=== PATIENT | female | born 1950 | race Hispanic/Latino ===

== ENCOUNTER → 2017-10-17 | Outpatient (CLI) | payer BC, OTHER ==
[~2017-10-17] MED LIST: APRISO0.375 GM PO; CANAGLIFLOZIN PO; CLARITIN10 M2 PO; ECOTRIN325 MG PO; FERROUS SULFAT325 M1 PO; FLUTICASONE PRO16 GM NS; FUROSEMIDE20 MG PO; GLYBURIDE5 MG PO; IOPAMIDOL 370 MG/ML 200 ML INFUS..BTL INJ ONE; JANUMET 50-1,01 EACH PO; K DUR10 MEQ PO; LANTUS 3ML100 UNITS/ SC; LEVOCETIRIZINE D5 MG PO; LEVOTHYROXINE25 MCG PO; LIALDA1.2 GM PO; LIPITOR10 MG PO; LOSARTAN POTASS25 MG PO; METHSCOPOLAMIN2.5 MG PO; METOPROLOL SUC100 MG PO; PANTOPRAZOLE SO40 MG PO; PATANOL5 ML OP; PLAVIX75 MG PO; PROAIR HFA INH8.5 GM INH; RANITIDINE HCL150 MG PO; SODIUM CHLORIDE 0.9% 50ML 50 ML ONE; VITAMIN D31000 UNI1 PO
[2017-10-17 09:23] LABS: BLOOD UREA NITROGEN 19 mg/dL (7-26); BUN/CREATININE RATIO 23 (6-25); CREATININE, SERUM 0.83 mg/dL (0.57-1.11); EST GLOMERULAR FILTRATION RATE > 60 ML/MIN (60-)
--- NOTE | 2017-10-17 14:54 | Diagnostic Imaging Report ---
CT, CTA lower extremity, with contrast. History: Peripheral vascular disease; bilateral intermittent claudication Comparison: None available. Technique: Multidetector [address] scanning with 4 mm cuts of the pelvis and bilateral lower extremities was performed from the level of the iliac crests to the feet after intravenous administration of iodinated contrast material. Scanning during arterial phase was performed. Coronal and sagittal multiplanar, MIP and 3-D volume-rendering reformations were obtained. IV CONTRAST:100mL of Isovue-370 ORAL CONTRAST: None RADIATION DOSE: Total DLP: 653.76 mGy*cm Estimated Effective Dose: DLP x 0.015 mSv COMPLICATIONS: None Discussion: Pelvis vessels: Bilateral common, external and internal iliac arteries are patent. Minimal atherosclerotic calcification is present. Right lower extremity: Right common femoral, profundus femoral, superficial femoral and popliteal arteries are patent. There is diffuse calcification within the SFA. There is a patent trifurcation. Occlusion of the right proximal anterior tibial artery is noted. The peroneal artery is continuous supply to the foot but small. Occlusion of the right posterior tibial artery in its midportion is noted. Left lower extremity: Left common femoral, profundus femoral and superficial femoral are patent. Diffuse calcification within the SFA also noted. Mid left SFA shows a 50% stenosis. The popliteal artery is occluded above the knee joint and reconstituted just at the popliteal bifurcation. Anterior tibial artery is occluded. Proximal and distal portion of the posterior tibial artery is occluded. Small peroneal artery continues to the foot. Other: There are clips present in the left thigh from saphenous vein harvest. IMPRESSION: 1. Diffuse atherosclerotic calcification in the lower extremity vessels. 2. 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 3. Left popliteal artery occlusion with reconstitution of a peroneal artery below the knee extending to the left foot. Signed by: Dr. Federico Butler DO on 10/17/2017 2:50 PM
== END ==
LOC: CT 08:24
DX: I70.213 Atherosclerosis of native arteries of extremities with intermittent claudication, bilateral legs (principal)
CPT/HCPCS: 36415; 73706; 82565; 84520; Q9967

== ENCOUNTER → 2017-12-19 | Outpatient (CLI) | payer BC, OTHER ==
[~2017-12-19] MED LIST changes: -IOPAMIDOL 370 MG/ML 200 ML INFUS..BTL INJ ONE; -SODIUM CHLORIDE 0.9% 50ML 50 ML ONE
--- NOTE | 2017-12-19 12:38 | Diagnostic Imaging Report ---
PROCEDURE: SMALL BOWEL SERIES FLUOROSCOPY TIME: 0.2 MINUTES Air Kerma: 16.8 mGy Comparison: None. Indications: anemia Technique: Small bowel follow through exam was performed using oral barium. Preliminary image was obtained before administration of contrast and serial overhead images were obtained after administration of oral barium. Fluoroscopy was performed and spot images were obtained. 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 No mass effect organomegaly. Degenerative disc changes of the lumbar spine and degenerative joint disease of the hips. SMALL BOWEL FOLLOW THROUGH: Small bowel loops are normal in caliber and distribution. Spot compression views of the terminal ileum are normal. The transit time was normal. IMPRESSION: Unremarkable fluoroscopic small bowel series. Dictated by: Shailesh Shelton M.D. on 12/19/2017 at 12:40 Electronically approved by: Shailesh Shelton M.D. on 12/19/2017 at 12:40
== END ==
LOC: DX 07:14
PROVIDERS: ATTEND Internal Medicine Gastroenterology
DX: D50.9 Iron deficiency anemia, unspecified (principal)
CPT/HCPCS: 74250

== ENCOUNTER → 2018-06-21 | Day surgery (SDC) | payer BC, OTHER ==
[2018-06-20 11:07] LABS: BASOPHILS # (AUTO) 0.1 (0.0-0.1); BASOPHILS % 0.6 % (0.0-1.0); EOSINOPHILS # (AUTO) 0.4 (0.0-0.4); EOSINOPHILS % 3.9 % (0.0-6.0); HEMATOCRIT 33.8 % (34.2-44.1); HEMOGLOBIN 10.9 g/dL (12.0-16.0); LYMPHOCYTES # (AUTO) 2.1 (1.0-3.2); LYMPHOCYTES % 21.6 % (18.0-39.1); MEAN CORPUSCULAR HEMOGLOBIN 29.2 pg (28-32); MEAN CORPUSCULAR HGB CONC 32.2 g/dL (31-35); MEAN CORPUSCULAR VOLUME 90.6 fL (81-99); MONOCYTES # (AUTO) 0.7 (0.2-0.8); MONOCYTES % 7.1 % (4.4-11.3); NEUTROPHILS # (AUTO) 6.3 (2.1-6.9); NEUTROPHILS % 66.3 % (38.7-80.0); PLATELET COUNT 209 x10e3/uL (140-360); RED BLOOD COUNT 3.73 x10e6/uL (3.6-5.1); RED CELL DISTRIBUTION WIDTH 13.8 % (11.7-14.4)
[2018-06-20 11:18] LABS: INR 0.85; PROTHROMBIN TIME 12.4 seconds (11.9-14.5)
[2018-06-20 11:19] LABS: PARTIAL THROMBOPLASTIN TIME 26.9 seconds (23.8-35.5)
[2018-06-20 11:28] LABS: ALBUMIN 3.6 g/dL (3.5-5.0); ALBUMIN/GLOBULIN RATIO 1.1 (0.8-2.0); ANION GAP 17.1 mmol/L (8-16); CALCIUM 9.8 mg/dL (8.4-10.2); CREATININE, SERUM 0.98 mg/dL (0.57-1.11); POTASSIUM 5.1 mmol/L (3.5-5.1)
--- NOTE | 2018-06-20 12:12 | Diagnostic Imaging Report ---
EXAMINATION: CHEST 2 VIEWS INDICATION: Chest pain. Preop for cardiac catheter COMPARISON: None FINDINGS: TUBES and LINES: Right anterior chest port catheter with distal tip at the right atrial/superior vena cava junction. Sternal wires. One of the mid sternal wires is disrupted. LUNGS: Lungs are well inflated. Lungs are clear. There is no evidence of pneumonia or pulmonary edema. PLEURA: No pleural effusion or pneumothorax. HEART AND MEDIASTINUM: The cardiomediastinal silhouette is unremarkable. BONES AND SOFT TISSUES: No acute osseous lesion. Soft tissues are unremarkable. UPPER ABDOMEN: No free air under the diaphragm. IMPRESSION: No acute thoracic abnormality. Signed by: Dr. Cesar Daly M.D. on 06/20/2018 12:08 PM
[2018-06-21] VITALS (20 sets, daily range): BP systolic 121–158; BP diastolic 54–99
[~2018-06-21] VITALS: Ht 160 cm; Wt 80.7 kg
[~2018-06-21] MED LIST changes: +BASAGLAR SC; +CALCET TABLET1 EACH PO; +FENTANYL CITRATE/PF 100MCG/2 ML INJ ONE; +HEPARIN SOD/SOD CHLORIDE 2,000 ML ONE; +IOPAMIDOL 370 MG/ML 200 ML INFUS..BTL INJ ONE; +LIDOCAINE HCL 1% LOCAL INJ 20 ML VIAL ONE; +MIDAZOLAM HCL 2 MG/2 ML VIAL ONE; +PROBIOTIC & AC1 EACH PO; +SODIUM CHLORIDE 0.9% 1000ML 1,000 ML ONE
--- OUTSIDE RECORDS SUMMARY | 2018-06-21 07:31 | XMS REPORT | Continuity of Care Document ---
Author Author [facility] Interface Address Unknown Phone Unavailable Problems Problem Status Onset Date Classification Date Reported Comments Source HTN Active Problem 08/13/2014 [facility] Hyperlipidemia Active Problem 08/13/2014 [facility] carotid artery disease Active Problem 08/13/2014 [facility] Asthma Active Problem 08/13/2014 [facility] Hypothyroidism Active Problem 08/13/2014 [facility] Vitamin d deficiency Active Problem 08/13/2014 [facility] Sinusitis Active Problem 08/13/2014 [facility] CAD Active Problem 08/13/2014 [facility] Diabetes mellitus Active Diagnosis 08/13/2014 [facility] 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 08/13/2014 [facility] Cardiac arrhythmia Active Problem 08/13/2014 [facility] Bronchitis Active Diagnosis 11/15/2013 [facility] Costochondritis Active Diagnosis 11/15/2013 [facility] GERD Active Diagnosis 12/21/2013 [facility] Post-menopausal Active Diagnosis 12/21/2013 [facility] Routine general medical examination at a health care facility Active Diagnosis 04/23/2014 [facility] CAD Active Problem 05/29/2014 [facility] Joint pain Active Diagnosis 04/23/2014 [facility] Medications Medication Details Route Status Patient Instructions Ordering Provider Order Date Source Klor-Con M10 1 tablet Orally Active 10 MEQ Orally daily [facility] 04/07/2015 [facility] Invokana 1 tablet Orally Active 300 MG Orally Once a day [facility] 07/29/2014 [facility] Klor-Con M10 1 tablet Orally Active 10 MEQ Orally daily [facility] 06/20/2014 [facility] Klor-Con M10 1 tablet Orally Active 10 MEQ Orally Twice a day [facility] 06/10/2014 [facility] GlyBURIDE 1 tablet Orally Active 5 MG Orally Once a day [facility] 01/25/2014 [facility] Synthroid 1 tablet on an empty stomach in the morning Orally Active 25 MCG Orally Once a day [facility] 01/11/2014 [facility] Omeprazole 1 capsule Orally Active 40 mg Orally Once a day [facility] 12/07/2013 [facility] Omeprazole 1 capsule Orally Active 40 mg Orally Once a day [facility] 12/07/2013 [facility] Zithromax Z-Sukhdev 2 tablets on the first day, then 1 tablet daily for 4 days Orally Active 250 MG Orally Once a day [facility] 11/08/2013 [facility] GlyBURIDE 2 tablets Orally No Longer Active 5 MG Orally Once a day [facility] 10/06/2013 [facility] Levaquin 1 tablet Orally Active 500 mg Orally Once a day [facility] 09/06/2013 [facility] Medrol (Sukhdev) as directed Orally Active 4 mg Orally as directed [facility] 09/06/2013 [facility] Janumet 1 tablet with meals Orally Active 50-1000 MG Orally Twice a day [facility] 08/13/2013 [facility] Nebulizer as directed inhalation therapy Active Nebulizer inhalation therapy q 4-6 hours prn [facility] 08/10/2013 [facility] Nebulizer as directed inhalation therapy Active Nebulizer inhalation therapy q 4-6 hours prn [facility] 08/10/2013 [facility] Plavix 1 tablet Orally Active 75 MG Orally Once a day [facility] 07/27/2013 [facility] Insulin Syringe as directed SQ Active 31G X 5/16" 0.5 ML SQ once every night DX: 250.00 [facility] 05/28/2013 [facility] Losartan Potassium 1 tablet Orally Active 25 MG Orally Once a day [facility] 04/04/2013 [facility] Patanol 1 drop into affected eye Ophthalmic Active 0.1 % Ophthalmic Twice a day [facility] 04/04/2013 [facility] Proventil HFA 2 puffs as needed Inhalation Active 108 (90 Base) MCG/ACT Inhalation every 4-6 hrs [facility] 03/12/2013 [facility] Nexium 1 capsule Orally Active 40 mg Orally Once a day [facility] 02/12/2013 [facility] Lantus 16 units Subcutaneous Active 100 UNIT/ML Subcutaneous qhs [facility] 12/22/2012 [facility] Ipratropium Durbin as needed via nebulizer Inhalation Active 0.02 % Inhalation [facility] Clopidogrel Bisulfate 1 tablet Orally Active 75 mg Orally Once a day [facility] Furosemide 1 tablet Orally Active 20 mg Orally Once a day [facility] Albuterol Sulfate 3 ml via nebulizer Inhalation Active (2.5 MG/3ML) 0.083% Inhalation prn [facility] Janumet 1 tablet with meals Orally Active 50-1000 MG Orally Twice a day [facility] Ecotrin 1 tablet Orally Active 325 MG Orally Once a day [facility] Vytorin 1 tablet Orally Active 10-20 MG Orally Once a day [facility] Loratadine 1 tablet Orally Active 10 mg Orally Once a day [facility] Klor-Con M10 1 tablet Orally Active 10 MEQ Orally Twice a day [facility] Metoprolol Succinate ER 1 tablet Orally Active 100 mg Orally Once a day [facility] Nexium TAKE 1 CAPSULE DAILY NA No Longer Active 40MG [facility] Metoprolol Succinate ER 1 tablet Orally Active 100MG Orally Once a day [facility] Vytorin 1 tablet Orally Active 10-20 MG Orally Once a day [facility] GlyBURIDE 1 tablet Orally No Longer Active 5 MG Orally Once a day [facility] Allergies, Adverse Reactions, Alerts Substance Category Reaction Severity Reaction type Status Date Reported Comments Source Codeine Phosphate Adverse Reaction itchy Adverse Reaction Active 07/29/2014 [facility] Immunizations Immunization Date Given Site Status Last Updated Comments Source Results Order Name Results Value Reference Range Date Interpretation Comments Source Vital Signs Vital Sign Value Date Comments Source Weight 193 07/29/2014 [facility] Height 63 07/29/2014 [facility] Heart Rate 86 07/29/2014 [facility] Diastolic (mm Hg) 82 07/29/2014 [facility] Systolic (mm Hg) 140 07/29/2014 [facility] Weight 194 07/12/2014 [facility] Height 63 07/12/2014 [facility] Heart Rate 78 07/12/2014 [facility] Diastolic (mm Hg) 78 07/12/2014 [facility] Systolic (mm Hg) 122 07/12/2014 [facility] Weight 192 04/12/2014 [facility] Height 63 04/12/2014 [facility] Temperature Oral (F) 98.0 F 04/12/2014 [facility] Heart Rate 82 04/12/2014 [facility] Diastolic (mm Hg) 74 04/12/2014 [facility] Systolic (mm Hg) 122 04/12/2014 [facility] Weight 192 01/25/2014 [facility] Height 63 01/25/2014 [facility] Heart Rate 68 01/25/2014 [facility] Diastolic (mm Hg) 78 01/25/2014 [facility] Systolic (mm Hg) 118 01/25/2014 [facility] Weight 192 12/07/2013 [facility] Height 63 12/07/2013 [facility] Temperature Oral (F) 97.4 F 12/07/2013 [facility] Heart Rate 68 12/07/2013 [facility] Diastolic (mm Hg) 80 12/07/2013 [facility] Systolic (mm Hg) 130 12/07/2013 [facility] Weight 192 10/12/2013 [facility] Height 63 10/12/2013 [facility] Heart Rate 89 10/12/2013 [facility] Diastolic (mm Hg) 80 10/12/2013 [facility] Systolic (mm Hg) 130 10/12/2013 [facility] Weight 190 08/10/2013 [facility] Height 63 08/10/2013 [facility] Temperature Oral (F) 97.9 F 08/10/2013 [facility] Heart Rate 76 08/10/2013 [facility] Diastolic (mm Hg) 80 08/10/2013 [facility] Systolic (mm Hg) 140 08/10/2013 [facility] Weight 189 07/06/2013 [facility] Height 63 07/06/2013 [facility] Heart Rate 68 07/06/2013 [facility] Diastolic (mm Hg) 70 07/06/2013 [facility] Systolic (mm Hg) 110 07/06/2013 [facility] Encounters Location Location Details Encounter Type Encounter Number Reason For Visit Attending Provider ADM Date DC Date Status Source [facility] rx refill [id number] 07/27/2013 07/27/2013 [facility] rx refill [id number] 07/27/2013 07/27/2013 [facility] rx refill [id number] 07/27/2013 07/27/2013 [facility] rx refill [id number] 07/27/2013 07/27/2013 [facility] rx refill [id number] 07/27/2013 07/27/2013 [facility] rx refill [id number] 07/27/2013 07/27/2013 [facility] rx refill [id number] 07/27/2013 07/27/2013 [facility] rx refill [id number] 07/27/2013 07/27/2013 [facility] rx refill [id number] 07/27/2013 07/27/2013 [facility] rx refill [id number] 07/27/2013 07/27/2013 [facility] rx refill [id number] 07/27/2013 07/27/2013 [facility] rx refill [id number] 07/27/2013 07/27/2013 [facility] rx refill [id number] 07/27/2013 07/27/2013 [facility] rx refill [id number] 07/27/2013 07/27/2013 [facility] rx refill [id number] 07/27/2013 07/27/2013 [facility] rx refill [id number] 07/27/2013 07/27/2013 [facility] rx refill [id number] 07/27/2013 07/27/2013 [facility] rx refill [id number] 07/27/2013 07/27/2013 [facility] rx refill [id number] 07/27/2013 07/27/2013 [facility] [id number] 08/10/2013 08/10/2013 [facility] [id number] 08/10/2013 08/10/2013 [facility] [id number] 08/10/2013 08/10/2013 [facility] [id number] 08/10/2013 08/10/2013 [facility] [id number] 08/10/2013 08/10/2013 [facility] [id number] 08/10/2013 08/10/2013 [facility] [id number] 08/10/2013 08/10/2013 [facility] [id number] 08/10/2013 08/10/2013 [facility] [id number] 08/10/2013 08/10/2013 [facility] [id number] 08/10/2013 08/10/2013 [facility] [id number] 08/10/2013 08/10/2013 [facility] [id number] 08/10/2013 08/10/2013 [facility] [id number] 08/10/2013 08/10/2013 [facility] [id number] 08/10/2013 08/10/2013 [facility] [id number] 08/10/2013 08/10/2013 [facility] [id number] 08/10/2013 08/10/2013 [facility] [id number] 09/06/2013 09/06/2013 [facility] [id number] 09/06/2013 09/06/2013 [facility] [id number] 09/06/2013 09/06/2013 [facility] [id number] 09/06/2013 09/06/2013 [facility] [id number] 09/06/2013 09/06/2013 [facility] [id number] 09/06/2013 09/06/2013 [facility] [id number] 09/06/2013 09/06/2013 [facility] [id number] 09/06/2013 09/06/2013 [facility] [id number] 09/06/2013 09/06/2013 [facility] [id number] 09/06/2013 09/06/2013 [facility] [id number] 09/06/2013 09/06/2013 [facility] [id number] 09/06/2013 09/06/2013 [facility] [id number] 09/06/2013 09/06/2013 [facility] [id number] 09/06/2013 09/06/2013 [facility] sick [id number] 09/06/2013 09/06/2013 [facility] sick [id number] 09/06/2013 09/06/2013 [facility] sick [id number] 09/06/2013 09/06/2013 [facility] [id number] 09/06/2013 09/06/2013 [facility] 3 month f/u [id number] 10/12/2013 10/12/2013 [facility] 3 month f/u [id number] 10/12/2013 10/12/2013 [facility] 3 month f/u [id number] 10/12/2013 10/12/2013 [facility] 3 month f/u [id number] 10/12/2013 10/12/2013 [facility] 3 month f/u [id number] 10/12/2013 10/12/2013 [facility] 3 month f/u [id number] 10/12/2013 10/12/2013 [facility] 3 month f/u [id number] 10/12/2013 10/12/2013 [facility] 3 month f/u [id number] 10/12/2013 10/12/2013 [facility] 3 month f/u [id number] 10/12/2013 10/12/2013 [facility] 3 month f/u [id number] 10/12/2013 10/12/2013 [facility] 3 month f/u [id number] 10/12/2013 10/12/2013 [facility] 3 month f/u [id number] 10/12/2013 10/12/2013 [facility] 3 month f/u [id number] 10/12/2013 10/12/2013 [facility] 3 month f/u [id number] 10/12/2013 10/12/2013 [facility] 3 month f/u [id number] 10/12/2013 10/12/2013 [facility] 3 month f/u [id number] 10/12/2013 10/12/2013 [facility] Sick [id number] 11/08/2013 11/08/2013 [facility] [id number] 11/08/2013 11/08/2013 [facility] [id number] 11/08/2013 11/08/2013 [facility] Sick [id number] 11/08/2013 11/08/2013 [facility] S[facility] [id number] 11/08/2013 11/08/2013 [facility] [id number] 11/08/2013 11/08/2013 [facility] [id number] 11/08/2013 11/08/2013 [facility] [id number] 11/08/2013 11/08/2013 [facility] [facility] [id number] 11/08/2013 11/08/2013 [facility] [id number] 11/08/2013 11/08/2013 [facility] Sick [id number] 11/08/2013 11/08/2013 [facility] Sick [id number] 11/08/2013 11/08/2013 [facility] Sick [id number] 11/08/2013 11/08/2013 [facility] Sick [id number] 11/08/2013 11/08/2013 [facility] Sick [id number] 11/08/2013 11/08/2013 [facility] Sick [id number] 11/08/2013 11/08/2013 [facility] Sick [id number] 11/08/2013 11/08/2013 [facility] PHYSICAL [id number] 12/07/2013 12/07/2013 [facility] PHYSICAL [id number] 12/07/2013 12/07/2013 [facility] PHYSICAL [id number] 12/07/2013 12/07/2013 [facility] PHYSICAL [id number] 12/07/2013 12/07/2013 [facility] PHYSICAL [id number] 12/07/2013 12/07/2013 [facility] PHYSICAL [id number] 12/07/2013 12/07/2013 [facility] PHYSICAL [id number] 12/07/2013 12/07/2013 [facility] PHYSICAL [id number] 12/07/2013 12/07/2013 [facility] PHYSICAL [id number] 12/07/2013 12/07/2013 [facility] PHYSICAL [id number] 12/07/2013 12/07/2013 [facility] PHYSICAL [id number] 12/07/2013 12/07/2013 [facility] PHYSICAL [id number] 12/07/2013 12/07/2013 [facility] PHYSICAL [id number] 12/07/2013 12/07/2013 [facility] PHYSICAL [id number] 12/07/2013 12/07/2013 [facility] [place] [id number] 01/04/2014 01/04/2014 [facility] [place] [id number] 01/04/2014 01/04/2014 [facility] [place] [id number] 01/04/2014 01/04/2014 [facility] [place] [id number] 01/04/2014 01/04/2014 [facility] [place] [id number] 01/04/2014 01/04/2014 [facility] [place] [id number] 01/04/2014 01/04/2014 [facility] [place] [id number] 01/04/2014 01/04/2014 [facility] [place] [id number] 01/04/2014 01/04/2014 [facility] [place] [id number] 01/04/2014 01/04/2014 [facility] [place] [id number] 01/04/2014 01/04/2014 [facility] Test results [id number] 01/11/2014 01/11/2014 [facility] Test results [id number] 01/11/2014 01/11/2014 [facility] Test results [id number] 01/11/2014 01/11/2014 [facility] Test results [id number] 01/11/2014 01/11/2014 [facility] Test results [id number] 01/11/2014 01/11/2014 [facility] Test results [id number] 01/11/2014 01/11/2014 [facility] Test results [id number] 01/11/2014 01/11/2014 [facility] results [id number] 01/11/2014 01/11/2014 [facility] Test results [id number] 01/11/2014 01/11/2014 [facility] Test results [id number] 01/11/2014 01/11/2014 [facility] Test results [id number] 01/11/2014 01/11/2014 [facility] Test results [id number] 01/11/2014 01/11/2014 [facility] Test results [id number] 01/11/2014 01/11/2014 [facility] Follow-Up labs [id number] 01/25/2014 01/25/2014 [facility] Follow-Up labs [id number] 01/25/2014 01/25/2014 [facility] Follow-Up labs [id number] 01/25/2014 01/25/2014 [facility]Up [facility] [id number] 01/25/2014 01/25/2014 [facility] Follow[facility]Up labs [id number] 01/25/2014 01/25/2014 [facility] Follow-Up labs [id number] 01/25/2014 01/25/2014 [facility] Follow-Up labs [id number] 01/25/2014 01/25/2014 [facility] Follow-Up labs [id number] 01/25/2014 01/25/2014 [facility] Follow-Up labs [id number] 01/25/2014 01/25/2014 [facility] Follow-Up labs [id number] 01/25/2014 01/25/2014 [facility] Follow-Up labs [id number] 01/25/2014 01/25/2014 [facility] Follow-Up labs [id number] 01/25/2014 01/25/2014 [facility] Unknown [id number] 01/29/2014 01/29/2014 [facility] Unknown [id number] 01/29/2014 01/29/2014 [facility] Unknown [id number] 01/29/2014 01/29/2014 [facility] Unknown [id number] 01/29/2014 01/29/2014 [facility] Unknown [id number] 01/29/2014 01/29/2014 [facility] Unknown [id number] 01/29/2014 01/29/2014 [facility] Unknown [id number] 01/29/2014 01/29/2014 [facility] Unknown [id number] 01/29/2014 01/29/2014 [facility] Unknown [id number] 01/29/2014 01/29/2014 [facility] Unknown [id number] 01/29/2014 01/29/2014 [facility] Unknown [id number] 01/29/2014 01/29/2014 [facility] Unknown [id number] 01/29/2014 01/29/2014 [facility] REFILL [id number] 03/12/2014 03/12/2014 [facility] REFILL [id number] 03/12/2014 03/12/2014 [facility] REFILL [id number] 03/12/2014 03/12/2014 [facility] REFILL [id number] 03/12/2014 03/12/2014 [facility] REFILL [id number] 03/12/2014 03/12/2014 [facility] REFILL [id number] 03/12/2014 03/12/2014 [facility] REFILL [id number] 03/12/2014 03/12/2014 [facility] REFILL [id number] 03/12/2014 03/12/2014 [facility] REFILL [id number] 03/12/2014 03/12/2014 [facility] REFILL [id number] 03/12/2014 03/12/2014 [facility] Refill [id number] 03/21/2014 03/21/2014 [facility] Refill [id number] 03/21/2014 03/21/2014 [facility] Refill [id number] 03/21/2014 03/21/2014 [facility] Refill [id number] 03/21/2014 03/21/2014 [facility] Refill [id number] 03/21/2014 03/21/2014 [facility] Refill [id number] 03/21/2014 03/21/2014 [facility] Refill [id number] 03/21/2014 03/21/2014 [facility] Refill [id number] 03/21/2014 03/21/2014 [facility] Refill [id number] 03/21/2014 03/21/2014 [facility] Refill [id number] 03/21/2014 03/21/2014 [facility] Unknown [id number] 03/22/2014 03/22/2014 [facility] Unknown [id number] 03/22/2014 03/22/2014 [facility] Unknown [id number] 03/22/2014 03/22/2014 [facility] Unknown [id number] 03/22/2014 03/22/2014 [facility] Unknown [id number] 03/22/2014 03/22/2014 [facility] Unknown [id number] 03/22/2014 03/22/2014 [facility] Unknown [id number] 03/22/2014 03/22/2014 [facility] Unknown [id number] 03/22/2014 03/22/2014 [facility] Unknown [id number] 03/22/2014 03/22/2014 [facility] Unknown [id number] 03/22/2014 03/22/2014 [facility] Refill [id number] 03/22/2014 03/22/2014 [facility] Refill [id number] 03/22/2014 03/22/2014 [facility] Refill [id number] 03/22/2014 03/22/2014 [facility] Refill [id number] 03/22/2014 03/22/2014 [facility] Refill [id number] 03/22/2014 03/22/2014 [facility] Refill [id number] 03/22/2014 03/22/2014 [facility] Refill [id number] 03/22/2014 03/22/2014 [facility] Refill [id number] 03/22/2014 03/22/2014 [facility] Refill [id number] 03/22/2014 03/22/2014 [facility] Refill [id number] 03/22/2014 03/22/2014 [facility] 3 month follow-up [id number] 04/12/2014 04/12/2014 [facility] 3 month follow-up [id number] 04/12/2014 04/12/2014 [facility] 3 month follow-up [id number] 04/12/2014 04/12/2014 [facility] 3 month follow-up [id number] 04/12/2014 04/12/2014 [facility] 3 month follow-up [id number] 04/12/2014 04/12/2014 [facility] 3 month follow-up [id number] 04/12/2014 04/12/2014 [facility] 3 month follow-up [id number] 04/12/2014 04/12/2014 [facility] 3 month follow-up [id number] 04/12/2014 04/12/2014 [facility] 3 month follow-up [id number] 04/12/2014 04/12/2014 [facility] Refill [id number] 05/13/2014 05/13/2014 [facility] Refill [id number] 05/13/2014 05/13/2014 [facility] Refill [id number] 05/13/2014 05/13/2014 [facility] Refill [id number] 05/13/2014 05/13/2014 [facility] 3 month follow up [id number] 07/12/2014 07/12/2014 [facility] 3 month follow up [id number] 07/12/2014 07/12/2014 [facility] 3 month follow up [id number] 07/12/2014 07/12/2014 [facility] Refill [id number] 07/17/2014 07/17/2014 [facility] Refill [id number] 07/17/2014 07/17/2014 [facility] Refill [id number] 07/17/2014 07/17/2014 [facility] Abnormal labs [id number] 07/29/2014 07/29/2014 [facility] Abnormal labs [id number] 07/29/2014 07/29/2014 [facility] Abnormal labs [id number] 07/29/2014 07/29/2014 [facility] Procedures Procedure Code Date Perfomer Comments Source
--- OUTSIDE RECORDS SUMMARY | 2018-06-21 07:31 | XMS REPORT ---
Author Author Karen Anderson Organization eClinicalWorks Address Unknown Phone Unavailable Care Team Providers Care Railcar Switchman Name Role Phone Karen Anderson CP Unavailable Encounters Encounter Location Date rx refill [facility] Jul 27, 2013 Problems Problem Type Condition ICD-9 Code Onset Dates Condition Status Problem HTN (hypertension) 401.9 Active Problem Hyperlipidemia 272.4 Active Problem carotid artery disease(Occlusion and stenosis of carotid artery without mention of cerebral infarction 433.10 Active Problem Asthma 493.90 Active Problem Hypothyroidism 244.9 Active Problem Vitamin d deficiency 268.9 Active Problem Sinusitis 473.9 Active Problem CAD (coronary artery disease) 414.00 Active Problem Diabetes mellitus 250.00 Active Problem Cough due to MACARIO inhibitor 786.2 Active Problem Cardiac arrhythmia 427.9 Active Medications Medication Code System Code Instructions Start Date End Date Status Dosage Plavix [facility] [address]-70 75 MG Orally Once a day Jul 27, 2013 Active 1 tablet Social History Social History Element Qualifiers Date Reported Ethnicity . Status , Is palestinian your primary language? Yes Jul 06, 2013 Where or with whom do you live ? . Spouse and Daughter Jul 06, 2013 children . Two children Jul 06, 2013 Tobacco Use: . Are you a: never smoker Jul 06, 2013 Use of recreational / street drugs? . Answer: No Jul 06, 2013 Marital Status: . Shailesh Jul 06, 2013 Do you drink alcohol? . 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
--- OUTSIDE RECORDS SUMMARY | 2018-06-21 07:31 | XMS REPORT ---
Author Author Karen Anderson [facility] eClinicalWorks Address Unknown Phone Unavailable Care Team Providers Care Rehab Spec Name Role Phone Monica Karen CP Unavailable Allergies, Adverse Reactions, Alerts Substance Reaction Event Type Codeine Phosphate itchy Drug Allergy Encounters Encounter Location Date HOSPITAL [facility] Aug 10, 2013 3 month f/u [facility] Oct 12, 2013 rx refill [facility] Jul 27, 2013 [facility] Sep 06, 2013 [facility] November 08, 2013 Problems Problem Type Condition ICD-9 Code Onset Dates Condition Status Problem HTN (hypertension) 401.9 Active Problem Hyperlipidemia 272.4 Active Problem carotid artery disease(Occlusion and stenosis of carotid artery without mention of cerebral infarction 433.10 Active Problem Hypothyroidism 244.9 Active Problem Vitamin d deficiency 268.9 Active Problem Sinusitis 473.9 Active Problem CAD (coronary artery disease) 414.00 Active Problem Diabetes mellitus 250.00 Active Problem Cough due to MACARIO inhibitor 786.2 Active Problem Cardiac arrhythmia 427.9 Active Assessment Asthma 493.90 Active Assessment Bronchitis 490 Active Assessment Costochondritis 733.6 Active Problem Asthma 493.90 Active Medications Medication Code System Code Instructions Start Date End Date Status Dosage Proventil HFA [facility] [address]-41 108 (90 Base) MCG/ACT Inhalation every 4-6 hrs March 12, 2013 Active 2 puffs as needed Losartan Potassium [facility] [address]-95 25 MG Orally Once a day April 04, 2013 Active 1 tablet Ipratropium [place] [facility] [address]-72 0.02 % Inhalation Active as needed via nebulizer Clopidogrel Bisulfate [facility] [address]-43 75 mg Orally Once a day Active 1 tablet Furosemide [facility] [address]-24 20 mg Orally Once a day Active 1 tablet Albuterol Sulfate [facility] [address]-51 (2.5 MG/3ML) 0.083% Inhalation prn Active 3 ml via nebulizer Insulin Syringe MULTUM 93786 31G X 5/16" 0.5 ML SQ once every night DX: 250.00 May 28, 2013 Active as directed Nebulizer MULTUM 63255 Nebulizer inhalation therapy q 4-6 hours prn Aug 10, 2013 Active as directed Plavix [facility] [address]-94 75 MG Orally Once a day Jul 27, 2013 Active 1 tablet Lantus [facility] [address]-18 100 UNIT/ML Subcutaneous qhs December 22, 2012 Active 10 units Janumet [facility] [address]-18 50-1000 MG Orally Twice a day Active 1 tablet with meals Ecotrin [facility] [address]-60 325 MG Orally Once a day Active 1 tablet Vytorin [facility] [address]-20 10-20 MG Orally Once a day Active 1 tablet Nexium [facility] [address]-52 40 mg Orally Once a day February 12, 2013 Active 1 capsule Loratadine [facility] [address]-81 10 mg Orally Once a day Active 1 tablet Patanol [facility] [address]-73 0.1 % Ophthalmic Twice a day April 04, 2013 Active 1 drop into affected eye Klor-Con M10 [facility] [address]-52 10 MEQ Orally Twice a day Active 1 tablet Metoprolol Succinate ER [facility] [address]-86 100 mg Orally Once a day Active 1 tablet Social History Social History Element Qualifiers Date Reported Ethnicity . Status , Is albanian your primary language? Yes Aug 10, 2013 Where or with whom do you live ? . Spouse and Daughter Aug 10, 2013 children . Two children Aug 10, 2013 Tobacco Use: . Are you a: never smoker Aug 10, 2013 Use of recreational / street drugs? . Answer: No Aug 10, 2013 Marital Status: . Shailesh Aug 10, 2013 Do you drink alcohol? . 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, 2013 Family history Qualifier Description Comment Date Reported Maternal Grandmother Comment not available Aug 10, 2013 Paternal Grandmother Comment not available Aug 10, 2013 Siblings alive type II diabetes, hypertension, asthma, hyperthyroidism, hypothyroidism Aug 10, 2013 Maternal Grandfather Comment not available Aug 10, 2013 Children alive type II diabetes Aug 10, 2013 Father diabetes mellitus, prostate cancer, hypertension Aug 10, 2013 Paternal Grandfather Comment not available Aug 10, 2013 Mother cirrhosis Aug 10, 2013 Vital Signs Date/Time: Aug 10, 2013 Weight 190 lbs Height 63 inches Temperature 97.9 F Cardiac Monitoring Heart Rate 76 Beats per Minute Blood Pressure Diastolic 80 mm Hg Blood Pressure Systolic 140 mm Hg Summary Purpose eClinicalWorks Submission
--- OUTSIDE RECORDS SUMMARY | 2018-06-21 07:31 | XMS REPORT ---
Author Author Karen Anderson Organization eClinicalWorks Address Unknown Phone Unavailable Care Team Providers Care Coat Hanger Shaper Machine Operator Name Role Phone Monica Karen CP Unavailable Encounters Encounter Location Date rx refill [facility] Jul 27, 2013 [facility] Sep 06, [address] [facility] November 08, 2013 [...] Instructions Start Date End Date Status Dosage Zithromax Z-Sukhdev [facility] [address]-70 250 MG Orally Once a day November 08, 2013 November 13, 2013 Active 2 tablets on the first day, then 1 tablet daily for 4 days Social History Social History Element Qualifiers Date Reported Ethnicity . Status , Is pashto your primary language? Yes Oct 12, 2013 Where or with whom do you live ? . Spouse and Daughter Oct 12, 2013 children . Two children Oct 12, 2013 Tobacco Use: . Are you a: never smoker Oct 12, 2013 Use of recreational / street drugs? . Answer: No Oct 12, 2013 Marital Status: . Shailesh Oct 12, 2013 Do you drink alcohol? . 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
--- OUTSIDE RECORDS SUMMARY | 2018-06-21 07:31 | XMS REPORT ---
Author Author Karen Anderson [facility] eClinicalWorks Address Unknown Phone Unavailable Care Team Providers Care Marketing Coordinator Name Role Phone Monica Karen CP Unavailable Allergies, Adverse Reactions, Alerts Substance Reaction Event Type Codeine Phosphate itchy Drug Allergy Encounters Encounter Location Date HOSPITAL [facility] Aug 10, 2013 3 month f/u [facility] Oct 12, 2013 PHYSICAL [facility] December 07, 2013 rx refill [facility] Jul 27, 2013 [facility] Sep 06, 2013 [facility] November 08, 2013 Problems Problem Type Condition ICD-9 Code Onset Dates Condition Status Problem HTN (hypertension) 401.9 Active Problem Hyperlipidemia 272.4 Active Problem carotid artery disease(Occlusion and stenosis of carotid artery without mention of cerebral infarction 433.10 Active Problem Hypothyroidism 244.9 Active Assessment Asthma 493.90 Active Problem Vitamin d deficiency 268.9 Active Problem Sinusitis 473.9 Active Problem CAD (coronary artery disease) 414.00 Active Problem Diabetes mellitus 250.00 Active Problem Cough due to MACARIO inhibitor 786.2 Active Problem Cardiac arrhythmia 427.9 Active Assessment HTN (hypertension) 401.9 Active Assessment CAD (coronary artery disease) 414.00 Active Assessment GERD (gastroesophageal reflux disease) 530.81 Active Assessment Cardiac arrhythmia 427.9 Active Assessment Post-menopausal V49.81 Active Assessment Screening for malignant neoplasm of breast V76.10 Active Assessment Hyperlipidemia 272.4 Active Assessment Routine general medical examination at a health care facility V70.0 Active Assessment Diabetes mellitus 250.00 Active Problem Asthma 493.90 Active Medications Medication Code System Code Instructions Start Date End Date Status Dosage Omeprazole [facility] [address]-65 40 mg Orally Once a day December 07, 2013 Active 1 capsule Losartan Potassium [facility] [address]-25 25 MG Orally Once a day April 04, 2013 Active 1 tablet Ecotrin [facility] [address]-35 325 MG Orally Once a day Active 1 tablet Ipratropium [place] [facility] [address]-22 0.02 % Inhalation Active as needed via nebulizer Loratadine [facility] [address]-43 10 mg Orally Once a day Active 1 tablet Nebulizer MULTUM 96121 Nebulizer inhalation therapy q 4-6 hours prn Aug 10, 2013 Active as directed Clopidogrel Bisulfate [facility] [address]-41 75 mg Orally Once a day Active 1 tablet Vytorin [facility] [address]-00 10-20 MG Orally Once a day Active 1 tablet Janumet [facility] [address]-21 50-1000 MG Orally Twice a day Aug 13, 2013 Active 1 tablet with meals Lantus [facility] [address]-39 100 UNIT/ML Subcutaneous qhs December 22, 2012 Active 10 units Klor-Con M10 [facility] [address]-61 10 MEQ Orally Twice a day Active 1 tablet Furosemide [facility] [address]-56 20 mg Orally Once a day Active 1 tablet Albuterol Sulfate [facility] [address]-24 (2.5 MG/3ML) 0.083% Inhalation prn Active 3 ml via nebulizer Patanol [facility] [address]-33 0.1 % Ophthalmic Twice a day April 04, 2013 Active 1 drop into affected eye Nexium [facility] [address]-84 40MG Inactive TAKE 1 CAPSULE DAILY Metoprolol Succinate ER [facility] [address]-75 100MG Active TAKE 1 TABLET DAILY Proventil HFA [facility] [address]-51 108 (90 Base) MCG/ACT Inhalation every 4-6 hrs March 12, 2013 Active 2 puffs as needed Social History Social History Element Qualifiers Date Reported Ethnicity . Status , Is malagasy your primary language? Yes December 07, 2013 Where or with whom do you live ? . Spouse and Daughter December 07, 2013 children . Two children December 07, 2013 Tobacco Use: . Are you a: never smoker December 07, 2013 Use of recreational / street drugs? . Answer: No December 07, 2013 Marital Status: . Shailesh December 07, 2013 Do you drink alcohol? . 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, 2013 Family history Qualifier Description Comment Date Reported Maternal Grandmother Comment not available December 07, 2013 Paternal Grandmother Comment not available December 07, 2013 Siblings alive type II diabetes, hypertension, asthma, hyperthyroidism, hypothyroidism December 07, 2013 Maternal Grandfather Comment not available December 07, 2013 Children alive type II diabetes December 07, 2013 Father diabetes mellitus, prostate cancer, hypertension December 07, 2013 Paternal Grandfather Comment not available December 07, 2013 Mother cirrhosis December 07, 2013 Vital Signs Date/Time: December 07, 2013 Weight 192 lbs Height 63 inches Temperature 97.4 F Cardiac Monitoring Heart Rate 68 Beats per Minute Blood Pressure Diastolic 80 mm Hg Blood Pressure Systolic 130 mm Hg Summary Purpose eClinicalWorks Submission
--- OUTSIDE RECORDS SUMMARY | 2018-06-21 07:31 | XMS REPORT ---
Author Author Karen Anderson Organization eClinicalWorks Address Unknown Phone Unavailable Care Team Providers Care Qualified Craft Worker Electrician Name Role Phone Karen Anderson Unavailable Encounters Encounter Location Date HOSPITAL [facility] Aug 10, 2013 3 month f/u [facility] Oct 12, 2013 PHYSICAL [facility] December 07, 2013 Test results [facility] January 11, 2014 rx refill [facility] Jul 27, 2013 [facility] Sep 06, 2013 [facility] November 08, 2013 [...] Instructions Start Date End Date Status Dosage Synthroid MEDISPAN [address]-33 25 MCG Orally Once a day January 11, 2014 Active 1 tablet on an empty stomach in the morning Social History Social History Element Qualifiers Date Reported Ethnicity . Status , Is turkmen your primary language? 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
--- OUTSIDE RECORDS SUMMARY | 2018-06-21 07:31 | XMS REPORT ---
Author Author Karen Anderson [facility] eClinicalWorks Address Unknown Phone Unavailable Care Team Providers Care Human Resources File Clerk Name Role Phone Monica Karen CP Unavailable Allergies, Adverse Reactions, Alerts Substance Reaction Event Type Codeine Phosphate itchy Drug Allergy Encounters Encounter Location Date HOSPITAL [facility] Aug 10, 2013 3 month f/u [facility] Oct 12, 2013 rx refill [facility] Jul 27, 2013 [facility] Sep 06, 2013 [facility] November [...] Active Problem Cardiac arrhythmia 427.9 Active Assessment Vitamin d deficiency 268.9 Active Assessment HTN (hypertension) 401.9 Active Assessment Hypothyroidism 244.9 Active Assessment Hyperlipidemia 272.4 Active Assessment Asthma 493.90 Active Assessment Diabetes mellitus 250.00 Active Assessment CAD (coronary artery disease) 414.00 Active Problem Asthma 493.90 Active Medications Medication Code System Code Instructions Start Date End Date Status Dosage Lantus [facility] [address]-30 100 UNIT/ML Subcutaneous qhs December 22, 2012 Active 10 units Clopidogrel Bisulfate [facility] [address]-31 75 mg Orally Once a day Active 1 tablet Patanol [facility] [address]-09 0.1 % Ophthalmic Twice a day April 04, 2013 Active 1 drop into affected eye Nexium [facility] [address]-42 40MG Active TAKE 1 CAPSULE DAILY Ecotrin [facility] [address]-95 325 MG Orally Once a day Active 1 tablet Nebulizer MULTUM 39689 Nebulizer inhalation therapy q 4-6 hours prn Aug 10, 2013 Active as directed Klor-Con M10 [facility] [address]-18 10 MEQ Orally Twice a day Active 1 tablet Proventil HFA [facility] [address]-38 108 (90 Base) MCG/ACT Inhalation every 4-6 hrs March 12, 2013 Active 2 puffs as needed Vytorin [facility] [address]-46 10-20 MG Orally Once a day Active 1 tablet Loratadine [facility] [address]-99 10 mg Orally Once a day Active 1 tablet Losartan Potassium [facility] [address]-51 25 MG Orally Once a day April 04, 2013 Active 1 tablet Metoprolol Succinate ER [facility] [address]-73 100MG Active TAKE 1 TABLET DAILY Furosemide [facility] [address]-10 20 mg Orally Once a day Active 1 tablet Albuterol Sulfate [facility] [address]-99 (2.5 MG/3ML) 0.083% Inhalation prn Active 3 ml via nebulizer Ipratropium [place] [facility] [address]-60 0.02 % Inhalation Active as needed via nebulizer Janumet [facility] [address]-24 50-1000 MG Orally Twice a day Aug 13, 2013 Active 1 tablet with meals Social History Social History Element Qualifiers Date Reported Ethnicity . Status , Is hungarian your primary language? 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, 2013 Family history Qualifier Description Comment Date Reported Maternal Grandmother Comment not available Oct 12, 2013 Paternal Grandmother Comment not available Oct 12, 2013 Siblings alive type II diabetes, hypertension, asthma, hyperthyroidism, hypothyroidism Oct 12, 2013 Maternal Grandfather Comment not available Oct 12, 2013 Children alive type II diabetes Oct 12, 2013 Father diabetes mellitus, prostate cancer, hypertension Oct 12, 2013 Paternal Grandfather Comment not available Oct 12, 2013 Mother cirrhosis Oct 12, 2013 Vital Signs Date/Time: Oct 12, 2013 Weight 192 lbs Height 63 inches Cardiac Monitoring Heart Rate 89 Beats per Minute Blood Pressure Diastolic 80 mm Hg Blood Pressure Systolic 130 mm Hg Results Basic Metabolic Panel (7) Hepatic Function Panel (7) Hemoglobin A1c Lipid Panel Summary Purpose eClinicalWorks Submission
--- OUTSIDE RECORDS SUMMARY | 2018-06-21 07:31 | XMS REPORT ---
Author Author Karen Anderson Organization eClinicalWorks Address Unknown Phone Unavailable Care Team Providers Care Development Spec Name Role Phone Monica Karen CP Unavailable Encounters Encounter Location Date rx refill [facility] Jul 27, 2013 [facility] Sep 06, 2013 Problems Problem Type Condition ICD-9 Code [...] Instructions Start Date End Date Status Dosage Levaquin [facility] [address]-00 500 mg Orally Once a day Sep 06, 2013 Sep 13, 2013 Active 1 tablet Medrol (Sukhdev) [facility] [address]-29 4 mg Orally as directed Sep 06, 2013 Active as directed Social History Social History Element Qualifiers Date Reported Ethnicity . Status , Is polish your primary language? 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
--- OUTSIDE RECORDS SUMMARY | 2018-06-21 07:32 | XMS REPORT ---
Author Author Karen Anderson [facility] eClinicalWorks Address Unknown Phone Unavailable Care Team Providers Care Rubber Molder Name Role Phone Karen Anderson Unavailable Encounters Encounter Location Date HOSPITAL [facility] Aug 10, 2013 3 month f/u [facility] Oct 12, 2013 PHYSICAL [facility] December 07, 2013 Test results [facility] January 11, 2014 rx refill [facility] Jul 27, 2013 sick [facility] Sep 06, 2013 Sick [facility] November 08, 2013 REFILL [facility] March 12, 2014 Unknown [facility] January 29, 2014 Follow-Up labs [facility] January 25, 2014 3 month follow-up [facility] Apr 12, 2014 Refill [facility] May 13, 2014 Unknown [facility] March 22, 2014 NV-[id number] [facility] January 04, 2014 Refill [facility] March 21, 2014 Refill [facility] March 22, 2014 Problems Problem Type Condition ICD-9 Code Onset Dates Condition Status Problem HTN (hypertension) 401.9 Active Problem Hyperlipidemia 272.4 Active Problem carotid artery disease(Occlusion and stenosis of carotid artery without mention of cerebral infarction 433.10 Active Assessment Diabetes mellitus 250.00 Active Problem Asthma 493.90 Active Problem Hypothyroidism 244.9 Active Problem Vitamin d deficiency 268.9 Active Problem Sinusitis 473.9 Active Problem CAD (coronary artery disease) 414.9 Active Problem Diabetes mellitus 250.00 Active Problem Cough due to MACARIO inhibitor 786.2 Active Problem Cardiac arrhythmia 427.9 Active Medications Medication Code System Code Instructions Start Date End Date Status Dosage Janumet MEDISPAN [address]-89 50-1000 MG Orally Twice a day Aug 13, 2013 Active 1 tablet with meals Social History Social History Element Qualifiers Date Reported Ethnicity . Status , Is japanese your primary language? Yes Apr 12, 2014 Where or with whom do you live ? . Spouse and Daughter Apr 12, 2014 children . Two children Apr 12, 2014 Tobacco Use: . Are you a: never smoker Apr 12, 2014 Use of recreational / street drugs? . Answer: No Apr 12, 2014 Marital Status: . Shailesh Apr 12, 2014 Do you drink alcohol? . 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
--- OUTSIDE RECORDS SUMMARY | 2018-06-21 07:32 | XMS REPORT ---
Author Author Karen Anderson [facility] eClinicalWorks Address Unknown Phone Unavailable Care Team Providers Care Machine Tender Name Role Phone Karen Anderson Unavailable Encounters Encounter Location Date HOSPITAL [facility] Aug 10, 2013 3 month f/u [facility] Oct 12, 2013 PHYSICAL [facility] December 07, 2013 Test results [facility] January 11, 2014 rx refill [facility] Jul 27, 2013 [facility] Sep 06, 2013 [facility] November 08, 2013 Unknown [facility] January 29, 2014 Follow-Up labs [facility] January 25, 2014 Problems Problem Type Condition ICD-9 Code [...] 786.2 Active Problem Cardiac arrhythmia 427.9 Active Social History Social History Element Qualifiers Date Reported Ethnicity . Status , Is vietnamese your primary language? Yes January 25, 2014 Where or with whom do you live ? . Spouse and Daughter January 25, 2014 children . Two children January 25, 2014 Tobacco Use: . Are you a: never smoker January 25, 2014 Use of recreational / street drugs? . Answer: No January 25, 2014 Marital Status: . Shailesh January 25, 2014 Do you drink alcohol? . 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
--- OUTSIDE RECORDS SUMMARY | 2018-06-21 07:32 | XMS REPORT ---
Author Author Karen Anderson [facility] eClinicalWorks Address Unknown Phone Unavailable Care Team Providers Care Die Cutter Apprentice Name Role Phone Karen Anderson Unavailable Encounters Encounter Location Date HOSPITAL [facility] Aug 10, 2013 3 month f/u [facility] Oct 12, 2013 PHYSICAL [facility] December 07, 2013 Test results [facility] January 11, 2014 rx refill [facility] Jul 27, 2013 sick [facility] Sep 06, 2013 [facility] November 08, 2013 REFILL [facility] March 12, 2014 Unknown [facility] January 29, 2014 Follow-Up labs [facility] January 25, 2014 3 month follow-up [facility] Apr 12, 2014 Unknown [facility] March 22, 2014 [id number] [facility] January 04, 2014 Refill [facility] March 21, 2014 Refill [facility] March [...] Instructions Start Date End Date Status [facility] [address]-69 5 MG Orally Once a day January 25, 2014 Active 1 tablet Social History Social History Element Qualifiers Date Reported Ethnicity . Status , Is belizean your primary language? Yes Apr 12, 2014 [...]
--- OUTSIDE RECORDS SUMMARY | 2018-06-21 07:32 | XMS REPORT ---
Author Author Karen Anderson [facility] eClinicalWorks Address Unknown Phone Unavailable Care Team Providers Care Rag Grader Name Role Phone Karen Anderson CP Unavailable Allergies, Adverse Reactions, Alerts Substance Reaction Event Type Codeine Phosphate itchy Drug Allergy Encounters Encounter Location Date HOSPITAL [facility] Aug 10, 2013 3 month f/u [facility] Oct 12, 2013 PHYSICAL [facility] December 07, 2013 Test results [facility] January 11, 2014 rx refill [facility] Jul 27, 2013 sick [facility] Sep 06, 2013 Sick [facility] November 08, 2013 REFILL [facility] March 12, 2014 Unknown [facility] January 29, 2014 Follow-Up labs [facility] January 25, 2014 3 month follow up [facility] Jul 12, 2014 Refill [facility] Jul 17, 2014 3 month follow-up [facility] Apr 12, 2014 Refill [facility] May 13, 2014 Unknown [facility] March 22, 2014 [id number] [facility] January 04, 2014 Refill [facility] March 21, 2014 Refill [facility] March 22, 2014 Abnormal labs [facility] Jul 29, 2014 Problems Problem Type Condition ICD-9 Code [...] Active Problem Cardiac arrhythmia 427.9 Active Assessment Hyperlipidemia 272.4 Active Assessment CAD (coronary artery disease) 414.00 Active Assessment Diabetes mellitus 250.00 Active Assessment HTN (hypertension) 401.9 Active Problem Asthma 493.90 Active Medications Medication Code System Code Instructions Start Date End Date Status Dosage Albuterol Sulfate [facility] [address]-00 (2.5 MG/3ML) 0.083% Inhalation prn Active 3 ml via nebulizer Vytorin [facility] [address]-23 10-20 MG Orally Once a day Active 1 tablet Janumet [facility] [address]-60 50-1000 MG Orally Twice a day Aug 13, 2013 Active 1 tablet with meals Loratadine [facility] [address]-52 10 mg Orally Once a day Active 1 tablet Lantus [facility] [address]-38 100 UNIT/ML Subcutaneous qhs December 22, 2012 Active 10 units Klor-Con M10 [facility] [address]-14 10 MEQ Orally daily Apr 07, 2015 Active 1 tablet Clopidogrel Bisulfate [facility] [address]-38 75 mg Orally Once a day Active 1 tablet Metoprolol Succinate ER [facility] [address]-67 100MG Orally Once a day Active 1 tablet Losartan Potassium [facility] [address]-65 25 MG Orally Once a day April 04, 2013 Active 1 tablet Patanol [facility] [address]-36 0.1 % Ophthalmic Twice a day April 04, 2013 Active 1 drop into affected eye Omeprazole [facility] [address]-75 40 mg Orally Once a day December 07, 2013 Active 1 capsule Nebulizer [facility] 81562-11685 Nebulizer inhalation therapy q 4-6 hours prn Aug 10, 2013 Active as directed Proventil HFA [facility] [address]-58 108 (90 Base) MCG/ACT Inhalation every 4- 6 hrs March 12, 2013 Active 2 puffs as needed Ecotrin [facility] [address]-50 325 MG Orally Once a day Active 1 tablet Furosemide [facility] [address]-79 20 mg Orally Once a day Active 1 tablet Ipratropium [place] [facility] [address]-20 0.02 % Inhalation Active as needed via nebulizer GlyBURIDE [facility] [address]-50 5 MG Orally Once a day January 25, 2014 Active 1 tablet Synthroid [facility] [address]-36 25 MCG Orally Once a day January 11, 2014 Active 1 tablet on an empty stomach in the morning Social History Social History Element Qualifiers Date Reported Ethnicity . Status , Is stateless your primary language? Yes Jul 29, 2014 Where or with whom do you live ? . Spouse and Daughter Jul 29, 2014 children . Two children Jul 29, 2014 Tobacco Use: . Are you a: never smoker Jul 29, 2014 Use of recreational / street drugs? . Answer: No Jul 29, 2014 Marital Status: . Shailesh Jul 29, 2014 Do you drink alcohol? . 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
--- OUTSIDE RECORDS SUMMARY | 2018-06-21 07:32 | XMS REPORT ---
Author Author Karen Anderson [facility] eClinicalWorks Address Unknown Phone Unavailable Care Team Providers Care High [employer] Agriculture Teacher Name Role Phone Karen Anderson Unavailable Encounters Encounter Location Date HOSPITAL [facility] Aug 10, 2013 3 month f/u [facility] Oct 12, 2013 PHYSICAL [facility] December 07, 2013 Test results [facility] January 11, 2014 rx refill [facility] Jul 27, 2013 [facility] Sep 06, 2013 Sick [facility] November 08, 2013 REFILL [facility] March 12, 2014 Unknown [facility] January 29, 2014 Follow-Up labs [facility] January 25, 2014 Unknown [facility] March 22, 2014 NV-[id number] [facility] January 04, 2014 Refill [facility] March 21, 2014 Refill [facility] March 22, 2014 Problems Problem Type Condition ICD-9 Code Onset Dates Condition Status Problem HTN (hypertension) 401.9 Active Problem Hyperlipidemia 272.4 Active Problem carotid artery disease(Occlusion and stenosis of carotid artery without mention of cerebral infarction 433.10 Active Assessment Hyperlipidemia 272.4 Active Problem Asthma 493.90 Active Problem Hypothyroidism 244.9 Active Problem Vitamin d deficiency 268.9 Active Problem Sinusitis 473.9 Active Problem CAD (coronary artery disease) 414.00 Active Problem Diabetes mellitus 250.00 Active Problem Cough due to MACARIO inhibitor 786.2 Active Problem Cardiac arrhythmia 427.9 Active Medications Medication Code System Code Instructions Start Date End Date Status Dosage Vytorin MEDISPAN [address]-32 10-20 MG Orally Once a day Active 1 tablet Klor-Con M10 [facility]ISP[facility] [address]-64 10 MEQ Orally Twice a day Jun 10, 2014 Active 1 tablet Social History Social History Element Qualifiers Date Reported Ethnicity . Status , Is sinhala your primary language? Yes Apr 12, 2014 [...]
--- OUTSIDE RECORDS SUMMARY | 2018-06-21 07:32 | XMS REPORT ---
Author Author Karen Anderson [facility] eClinicalWorks Address Unknown Phone Unavailable Care Team Providers Care Behavior Therapist Name Role Phone Karen Anderson CP Unavailable Allergies, Adverse Reactions, Alerts Substance Reaction Event Type Codeine Phosphate itchy Drug Allergy Encounters Encounter Location Date HOSPITAL [facility] Aug 10, 2013 3 month f/u [facility] Oct 12, 2013 PHYSICAL [facility] December 07, 2013 Test results [facility] January 11, 2014 rx refill [facility] Jul 27, 2013 sick [facility] Sep 06, 2013 Sick [facility] November 08, 2013 REFILL [facility] March 12, 2014 Unknown [facility] January 29, 2014 Follow-Up labs [facility] January 25, 2014 3 month follow up [facility] Jul 12, 2014 Refill [facility] Jul 17, 2014 3 month follow-up [facility] Apr 12, 2014 Refill [facility] May 13, 2014 Unknown [facility] March 22, 2014 NV-[id number] [facility] January 04, 2014 Refill [facility] March 21, 2014 Refill [facility] March 22, 2014 Abnormal labs [facility] Jul 29, [...] Instructions Start Date End Date Status Dosage Nebulizer [facility] 88[address]-20738 Nebulizer inhalation therapy q 4-6 hours prn Aug 10, 2013 Active as directed GlyBURIDE [facility] [address]-27 5 MG Orally Once a day January 25, 2014 Active 1 tablet Vytorin [facility] [address]-86 10-20 MG Orally Once a day Active 1 tablet Lantus [facility] [address]-65 100 UNIT/ML Subcutaneous qhs December 22, 2012 Active 16 units Ecotrin [facility] [address]-32 325 MG Orally Once a day Active 1 tablet Invokana [facility] [address]-76 300 MG Orally Once a day Jul 29, 2014 January 25, 2015 Active 1 tablet Losartan Potassium [facility] [address]-26 25 MG Orally Once a day April 04, 2013 Active 1 tablet Synthroid [facility] [address]-78 25 MCG Orally Once a day January 11, 2014 Active 1 tablet on an empty stomach in the morning Klor-Con M10 [facility] [address]-47 10 MEQ Orally daily Apr 07, 2015 Active 1 tablet Janumet [facility] [address]-36 50-1000 MG Orally Twice a day Aug 13, 2013 Active 1 tablet with meals Omeprazole [facility] [address]-53 40 mg Orally Once a day December 07, 2013 Active 1 capsule Furosemide [facility] [address]-26 20 mg Orally Once a day Active 1 tablet Albuterol Sulfate [facility] [address]-87 (2.5 MG/3ML) 0.083% Inhalation prn Active 3 ml via nebulizer Proventil HFA [facility] [address]-64 108 (90 Base) MCG/ACT Inhalation every 4- 6 hrs March 12, 2013 Active 2 puffs as needed Loratadine [facility] [address]-79 10 mg Orally Once a day Active 1 tablet Metoprolol Succinate ER [facility] [address]-13 100MG Orally Once a day Active 1 tablet Ipratropium [place] [facility] [address]-88 0.02 % Inhalation Active as needed via nebulizer Clopidogrel Bisulfate [facility] [address]-95 75 mg Orally Once a day Active 1 tablet Patanol [facility] [address]-49 0.1 % Ophthalmic Twice a day April 04, 2013 Active 1 drop into affected eye Social History Social History Element Qualifiers Date Reported Ethnicity . Status , Is yi your primary language? Yes Jul 29, 2014 [...] Jul 29, 2014 Vital Signs Date/Time: Jul 29, 2014 Weight 193 lbs Height 63 in Cardiac Monitoring Heart Rate 86 /min Blood Pressure Diastolic 82 mm Hg Blood Pressure Systolic 140 mm Hg Summary Purpose eClinicalWorks Submission
--- OUTSIDE RECORDS SUMMARY | 2018-06-21 07:32 | XMS REPORT ---
Author Author Karen Anderson [facility] eClinicalWorks Address Unknown Phone Unavailable Care Team Providers Care Wet Finisher Wool Name Role Phone Karen Anderson Unavailable Encounters Encounter Location Date HOSPITAL [facility] Aug 10, 2013 3 month f/u [facility] Oct 12, [address] [facility] December 07, [address] [facility] January 11, 2014 rx refill [facility] Jul 27, [address] [facility] Sep 06, 2013 [facility] November 08, 2013 REFILL [facility] March 12, 2014 Unknown [facility] January 29, 2014 Follow-Up labs [facility] January 25, 2014 3 month follow-up [facility] Apr 12, 2014 Unknown [facility] March 22, 2014 NV-HGA1C [facility] January 04, 2014 Refill [facility] March 21, 2014 Refill [facility] March [...] Assessment Vitamin d deficiency 268.9 Active Assessment Hypothyroidism 244.9 Active Assessment CAD (coronary artery disease) 414.00 Active Assessment Diabetes mellitus 250.00 Active Assessment HTN (hypertension) 401.9 Active Assessment Routine general medical examination at a health care facility V70.0 Active Assessment Hyperlipidemia 272.4 Active Problem Asthma 493.90 Active Medications Medication Code System Code Instructions Start Date End Date Status Dosage Albuterol Sulfate [facility] [address]-14 (2.5 MG/3ML) 0.083% Inhalation prn Active 3 ml via nebulizer Ipratropium [place] [facility] [address]-61 0.02 % Inhalation Active as needed via nebulizer Klor-Con M10 [facility] [address]-56 10 MEQ Orally Twice a day Active 1 tablet Clopidogrel Bisulfate [facility] [address]-21 75 mg Orally Once a day Active 1 tablet Furosemide [facility] [address]-95 20 mg Orally Once a day Active 1 tablet Lantus [facility] [address]-85 100 UNIT/ML Subcutaneous qhs December 22, 2012 Active 10 units Metoprolol Succinate ER [facility] [address]-72 100MG Active TAKE 1 TABLET DAILY Losartan Potassium [facility] [address]-82 25 MG Orally Once a day April 04, 2013 Active 1 tablet Patanol [facility] [address]-14 0.1 % Ophthalmic Twice a day April 04, 2013 Active 1 drop into affected eye Loratadine [facility] [address]-56 10 mg Orally Once a day Active 1 tablet Nebulizer [facility] 76302-08816 Nebulizer inhalation therapy q 4-6 hours prn Aug 10, 2013 Active as directed Ecotrin [facility] [address]-29 325 MG Orally Once a day Active 1 tablet Omeprazole [facility] [address]-45 40 mg Orally Once a day December 07, 2013 Active 1 capsule Proventil HFA [facility] [address]-91 108 (90 Base) MCG/ACT Inhalation every 4- 6 hrs March 12, 2013 Active 2 puffs as needed Janumet [facility] [address]-73 50-1000 MG Orally Twice a day Aug 13, 2013 Active 1 tablet with meals Vytorin [facility] [address]-84 10-20 MG Orally Once a day Active 1 tablet Social History Social History Element Qualifiers Date Reported Ethnicity . Status , Is bangladeshi your primary language? 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
--- OUTSIDE RECORDS SUMMARY | 2018-06-21 07:32 | XMS REPORT ---
Author Author Karen Anderson [facility] [place] eClinicalWorks Address Unknown Phone Unavailable Care Team Providers Care Straightener And Aligner Name Role Phone Monica Karen LICONA Unavailable Encounters Encounter Location Date HOSPITAL [facility] Aug 10, 2013 3 month f/u [facility] Oct 12, 2013 PHYSICAL [facility] December 07, 2013 Test results [facility] January 11, 2014 rx refill [facility] Jul 27, 2013 sick [facility] Sep 06, 2013 Sick [facility] November 08, 2013 REFILL [facility] March 12, 2014 Unknown [facility] January 29, 2014 Follow-Up labs [facility] January 25, 2014 3 month follow up [facility] Jul 12, 2014 Refill [facility] Jul 17, 2014 3 month follow-up [facility] Apr 12, 2014 Refill [facility] May 13, 2014 Unknown [facility] March 22, 2014 [id number] [facility] January 04, 2014 Refill [facility] March 21, 2014 Refill [facility] March 22, 2014 Abnormal labs [facility] Jul 29, [...] Start Date End Date Status Dosage Lantus MEDISPAN [address]-27 100 UNIT/ML Subcutaneous qhs December 22, 2012 Active 16 units Social History Social History Element Qualifiers Date Reported Ethnicity . Status , Is swedish your primary language? 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
--- OUTSIDE RECORDS SUMMARY | 2018-06-21 07:32 | XMS REPORT ---
Author Author Karen Anderson [facility] eClinicalWorks Address Unknown Phone Unavailable Care Team Providers Care Research Editor Name Role Phone Monica Karen CP Unavailable Allergies, Adverse Reactions, Alerts Substance Reaction Event Type Codeine Phosphate itchy Drug Allergy Encounters Encounter Location Date HOSPITAL [facility] Aug 10, 2013 3 month f/u [facility] Oct 12, 2013 PHYSICAL [facility] December 07, 2013 Test results [facility] January 11, 2014 rx refill [facility] Jul 27, 2013 [facility] Sep 06, 2013 [facility] November 08, 2013 Unknown [facility] January 29, 2014 Follow-Up labs [facility] [...] Active Assessment HTN (hypertension) 401.9 Active Assessment Hyperlipidemia 272.4 Active Assessment Diabetes mellitus 250.00 Active Problem Asthma 493.90 Active Medications Medication Code System Code Instructions Start Date End Date Status Dosage Janumet MEDISPAN [address]-86 50-1000 MG Orally Twice a day Aug 13, 2013 Active 1 tablet with meals [facility] [address]-85 25 MCG Orally Once a day January 11, 2014 Active 1 tablet on an empty stomach in the morning Ecotrin [facility] [address]-82 325 MG Orally Once a day Active 1 tablet Ipratropium Evergreen [facility] [address]-48 0.02 % Inhalation Active as needed via nebulizer GlyBURIDE [facility] [address]-77 5 MG Orally Once a day Oct 06, 2013 Inactive 2 tablets Metoprolol Succinate ER [facility] [address]-59 100MG Active TAKE 1 TABLET DAILY Vytorin [facility] [address]-17 10-20 MG Orally Once a day Active 1 tablet GlyBURIDE [facility] [address]-51 5 MG Orally Once a day Inactive 1 tablet Patanol [facility] [address]-89 0.1 % Ophthalmic Twice a day April 04, 2013 Active 1 drop into affected eye Lantus [facility] [address]-14 100 UNIT/ML Subcutaneous qhs December 22, 2012 Active 10 units GlyBURIDE [facility] [address]-04 5 MG Orally Once a day January 25, 2014 Active 1 tablet Loratadine [facility] [address]-69 10 mg Orally Once a day Active 1 tablet Furosemide [facility] [address]-45 20 mg Orally Once a day Active 1 tablet Proventil HFA [facility] [address]-47 108 (90 Base) MCG/ACT Inhalation every 4- 6 hrs March 12, 2013 Active 2 puffs as needed Nebulizer [facility] 64135-81450 Nebulizer inhalation therapy q 4-6 hours prn Aug 10, 2013 Active as directed Losartan Potassium [facility] [address]-22 25 MG Orally Once a day April 04, 2013 Active 1 tablet Omeprazole [facility] [address]-02 40 mg Orally Once a day December 07, 2013 Active 1 capsule Clopidogrel Bisulfate [facility] [address]-71 75 mg Orally Once a day Active 1 tablet Albuterol Sulfate [facility] [address]-55 (2.5 MG/3ML) 0.083% Inhalation prn Active 3 ml via nebulizer Klor-Con M10 [facility] [address]-25 10 MEQ Orally Twice a day Active 1 tablet Social History Social History Element Qualifiers Date Reported Ethnicity . Status , Is prydeinig your primary language? 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
--- OUTSIDE RECORDS SUMMARY | 2018-06-21 07:32 | XMS REPORT ---
Author Author Karen Anderson [facility] eClinicalWorks Address Unknown Phone Unavailable Care Team Providers Care Finance Specialist Name Role Phone Karen Anderson Unavailable Encounters Encounter Location Date HOSPITAL [facility] Aug 10, 2013 3 month f/u [facility] Oct 12, 2013 PHYSICAL [facility] December 07, 2013 Test results [facility] January 11, 2014 rx refill [facility] Jul 27, 2013 sick [facility] Sep 06, 2013 Sick [facility] November 08, 2013 REFILL [facility] March 12, 2014 Unknown [facility] January 29, 2014 Follow-Up labs [facility] January 25, 2014 3 month follow-up [facility] Apr 12, 2014 Unknown [facility] March 22, 2014 [id number] [facility] January 04, 2014 Refill [facility] March 21, 2014 Refill [facility] March [...] Instructions Start Date End Date Status Dosage Klor-Con M10 MEDISPAN [address]-69 10 MEQ Orally daily Jun 20, 2014 Active 1 tablet Social History Social History Element Qualifiers Date Reported Ethnicity . Status , Is palestinian your primary language? Yes Apr 12, 2014 [...]
--- OUTSIDE RECORDS SUMMARY | 2018-06-21 07:32 | XMS REPORT ---
Author Author [facility] Organization [facility] Address Unknown Phone Unavailable Care Team Providers Care Pharmacy Specialist Name Role Phone VALERIY HASSAN Unavailable Unavailable NAFISA MAGALLON Unavailable Unavailable Payers Payer Name Policy Type Policy Number Effective Date Expiration Date Problems This patient has no known problems. Allergies, Adverse Reactions, Alerts Allergy Name Allergy Type Status Severity Reaction(s) Onset Date Inactive Date Treating Clinician Comments codedary DA Active HI 2017-11-03 00:00:00 Medications This patient has no known medications. Results Test Description Test Time Test Comments Text Results Atomic Results Result Comments CHEST 2 VIEWS 2018-06-20 12:07:00 [place] [address] Patient Name: WILBUR YUNG MR #: [id number] : 1950 Age/Sex: 68/F Req #: [id number] Adm Physician: Ordered by: VALERIY HASSAN MD Report #: [id number] Location: [facility] Room/Bed: Procedure: [id number] DX/CHEST 2 VIEWS Exam Date: 06/20/18 Exam Time: 1135 REPORT STATUS: Signed EXAMINATION: CHEST 2 VIEWS INDICATION: Chest pain. Preop for cardiac catheter COMPARISON: None FINDINGS: TUBES and LINES: Right anterior chest port catheter with distal tip at the right atrial/superior vena cava junction. Sternal wires. One of the mid sternal wires is disrupted. LUNGS: Lungs are well inflated. Lungs are clear. There is no evidence of pneumonia or pulmonary edema. PLEURA: No pleural effusion or pneumothorax. HEART AND MEDIASTINUM: The cardiomediastinal silhouette is unremarkable. BONES AND SOFT TISSUES: No acute osseous lesion. Soft tissues are unremarkable. UPPER ABDOMEN: No free air under the diaphragm. IMPRESSION: No acute thoracic abnormality. Signed by: Dr. Cesar Daly M.D. on 06/20/2018 12:08 PM Dictated By: CESAR DALY MD, MD 07 Transcribed By: LUIS ARMANDO on 06/20/181207 COPY TO: VALERIY HASSAN MD SMALL BOWEL SERIES [place] [address] Patient Name: WILBUR YUNG MR #: [id number] : 1950 Age/Sex: 67/F Req #: [id number] Adm Physician: Ordered by: NAFISA MAGALLON MD Report #: [id number] Location: DX Room/Bed: Procedure: [id number] DX/SMALL BOWEL SERIES Exam Date: Exam Time: REPORT STATUS: Signed PROCEDURE: SMALL BOWEL SERIES FLUOROSCOPY TIME: 0.2 MINUTES Air Kerma: 16.8 mGy Comparison: None. Indications: anemia Technique: Small bowel follow through exam was performed using oral barium. Preliminary image was obtained before administration of contrast and serial overhead images were obtained after administration of oral barium. Fluoroscopy was performed and spot images were obtained. Findings: Assembler Bicycle radiograph shows a nonobstructive bowel gas pattern. No mass effect organomegaly. Degenerative disc changes of the lumbar spine and degenerative joint disease of the hips. SMALL BOWEL FOLLOW THROUGH: Small bowel loops are normal in caliber and distribution. Spot compression views of the terminal ileum are normal. The transit time was normal. IMPRESSION: Unremarkable fluoroscopic small bowel series. Dictated by: Rocio Fernandez M.D. on 12/19/2017 at 12:40 Electronically approved by: Rocio Fernandez M.D. on 12/19/2017 at 12:40 Dictated By: ROCIO FERNANDEZ MD 1240 Transcribed By: BIANCA on 12/19/17 1240 COPY TO: NAFISA MAGALLON MD CTA LOWER EX[place]IES [place] [address] Patient Name: WILBUR YUNG MR #: [id number] : 1950 Age/Sex: 67/F Req #: [id number] Adm Physician: Ordered by: VALERIY HASSAN MD Report #: [id number] Location: CT Room/Bed: Procedure: [id number] CT/CTA LOWER EXTREMITIES BILAT Exam Date: Exam Time: REPORT STATUS: Signed CT, CTA lower extremity, with contrast. History: Peripheral vascular disease; bilateral intermittent claudication Comparison: None available. Technique: Multidetector [address] scanning with 4 mm cuts of the pelvis and bilateral lower extremities was performed from the level of the iliac crests to the feet after intravenous administration of iodinated contrast material. Scanning during arterial phase was performed. Coronal and sagittal multiplanar, MIP and 3-D volume-rendering reformations were obtained. IV CONTRAST:100mL of Isovue-370 ORAL CONTRAST: None RADIATION DOSE: Total DLP: 653.76 mGy*cm Estimated Effective Dose: DLP x 0.015 mSv COMPLICATIONS: None Discussion: Pelvis vessels: Bilateral common, external and internal iliac arteries are patent. Minimal atherosclerotic calcification is present. Right lower extremity: Right common femoral, profundus femoral, superficial femoral and popliteal arteries are patent. There is diffuse calcification within the SFA. There is a patent trifurcation. Occlusion of the right proximal anterior tibial artery is noted. The peroneal artery is continuous supply to the foot but small. Occlusion of the right posterior tibial artery in its midportion is noted. Left lower extremity: Left common femoral, profundus femoral and superficial femoral are patent. Diffuse calcification within the SFA also noted. Mid left SFA shows a 50% stenosis. The popliteal artery is occluded above the knee joint and reconstituted just at the popliteal bifurcation. Anterior tibial artery is occluded. Proximal and distal portion of the posterior tibial artery is occluded. Small peroneal artery continues to the foot. Other: There are clips present in the left thigh from saphenous vein harvest. IMPRESSION: 1. Diffuse atherosclerotic calcification in the lower extremity vessels. 2. 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 3. Left popliteal artery occlusion with reconstitution of a peroneal artery below the knee extending to the left foot. Signed by: Dr. Korina Butler DO on 10/17/2017 2:50 PM Dictated By: KORINA BUTLER DO 0523 Transcribed By: LUIS ARMANDO on 10/17/17 2058 COPY TO: VALERIY HASSAN MD
--- OUTSIDE RECORDS SUMMARY | 2018-06-21 07:32 | XMS REPORT ---
Author Author Karen Anderson [facility] eClinicalWorks Address Unknown Phone Unavailable Care Team Providers Care Md Physician Dermatologist Name Role Phone Karen Anderson CP Unavailable Allergies, Adverse Reactions, Alerts Substance Reaction Event Type Codeine Phosphate itchy Drug Allergy Encounters Encounter Location Date HOSPITAL [facility] Aug 10, 2013 3 month f/u [facility] Oct 12, 2013 PHYSICAL [facility] December 07, 2013 Test results [facility] January 11, 2014 rx refill [facility] Jul 27, 2013 [facility] Sep 06, 2013 [facility] November 08, 2013 REFILL [facility] March 12, 2014 Unknown [facility] January 29, 2014 Follow-Up labs [facility] January 25, 2014 3 month follow-up [facility] Apr 12, 2014 Unknown [facility] March 22, 2014 [id number] [facility] January 04, 2014 Refill [facility] March 21, 2014 Refill [facility] [...] Active Problem Cardiac arrhythmia 427.9 Active Assessment Hypothyroidism 244.9 Active Assessment Asthma 493.90 Active Assessment CAD (coronary artery disease) 414.00 Active Assessment Hyperlipidemia 272.4 Active Assessment Joint pain 719.40 Active Assessment Diabetes mellitus 250.00 Active Assessment HTN (hypertension) 401.9 Active Problem Asthma 493.90 Active Medications Medication Code System Code Instructions Start Date End Date Status Dosage Furosemide MEDISPAN [address]-27 20 mg Orally Once a day Active 1 tablet Loratadine [facility] [address]-80 10 mg Orally Once a day Active 1 tablet Vytorin [facility] [address]-12 10-20 MG Orally Once a day Active 1 tablet Nebulizer [facility] 14460-75492 Nebulizer inhalation therapy q 4-6 hours prn Aug 10, 2013 Active as directed Ecotrin [facility] [address]-60 325 MG Orally Once a day Active 1 tablet Ipratropium Spencer [facility] [address]-96 0.02 % Inhalation Active as needed via nebulizer Omeprazole [facility] [address]-96 40 mg Orally Once a day December 07, 2013 Active 1 capsule GlyBURIDE [facility] [address]-94 5 MG Orally Once a day January 25, 2014 Active 1 tablet Clopidogrel Bisulfate [facility] [address]-39 75 mg Orally Once a day Active 1 tablet Lantus [facility] [address]-56 100 UNIT/ML Subcutaneous qhs December 22, 2012 Active 10 units Klor-Con M10 [facility] [address]-88 10 MEQ Orally daily Apr 07, 2015 Active 1 tablet Synthroid [facility] [address]-99 25 MCG Orally Once a day January 11, 2014 Active 1 tablet on an empty stomach in the morning Patanol [facility] [address]-02 0.1 % Ophthalmic Twice a day April 04, 2013 Active 1 drop into affected eye Proventil HFA [facility] [address]-26 108 (90 Base) MCG/ACT Inhalation every 4- 6 hrs March 12, 2013 Active 2 puffs as needed Albuterol Sulfate [facility] [address]-53 (2.5 MG/3ML) 0.083% Inhalation prn Active 3 ml via nebulizer Metoprolol Succinate ER [facility] [address]-01 100MG Orally Once a day Active 1 tablet Losartan Potassium [facility] [address]-01 25 MG Orally Once a day April 04, 2013 Active 1 tablet Janumet [facility] [address]-34 50-1000 MG Orally Twice a day Aug 13, 2013 Active 1 tablet with meals Social History Social History Element Qualifiers Date Reported Ethnicity . Status , Is pakistani your primary language? Yes Apr 12, 2014 [...] 2014 Occupation: . housewife Apr 12, 2014 Vital Signs Date/Time: Apr 12, 2014 Weight 192 lbs Height 63 in Temperature 98.0 F Cardiac Monitoring Heart Rate 82 /min Blood Pressure Diastolic 74 mm Hg Blood Pressure Systolic 122 mm Hg Results Foot 3 views- Right Xray Basic Metabolic Panel (7) eGFR If Africn Am(- >59 mL/min/1.73) 81 eGFR If NonAfricn Am(- >59 mL/min/1.73) 71 Sodium, Serum(-134-144 mmol/L) 140 BUN/Creatinine Ratio(-11-26 ) 24 Glucose, Serum(-65-99 mg/dL) 119 Creatinine, Serum(-0.57-1.00 mg/dL) 0.87 BUN(-8-27 mg/dL) 21 Carbon Dioxide, Total(-18-29 mmol/L) 26 Potassium, Serum(-3.5-5.2 mmol/L) 4.7 Chloride, Serum(-97-108 mmol/L) 97 Elbow 2 views - Right Xray Hand 3 Views- Left Xray Summary Purpose eClinicalWorks Submission
--- OUTSIDE RECORDS SUMMARY | 2018-06-21 07:32 | XMS REPORT ---
Author Author Karen Anderson [facility] eClinicalWorks Address Unknown Phone Unavailable Care Team Providers Care Environmental Science Program Director Name Role Phone Karen Anderson Unavailable Encounters Encounter Location Date HOSPITAL [facility] Aug 10, 2013 3 month f/u [facility] Oct 12, 2013 PHYSICAL [facility] December 07, 2013 Test results [facility] January 11, 2014 rx refill [facility] Jul 27, 2013 sick [facility] Sep 06, 2013 [facility] November 08, 2013 REFILL [facility] March 12, 2014 Unknown [facility] January 29, 2014 Follow-Up labs [facility] January 25, 2014 3 month follow-up [facility] Apr 12, 2014 Unknown [facility] March 22, 2014 [id number] [facility] January 04, 2014 Refill [facility] March 21, 2014 Refill [facility] March [...] Start Date End Date Status [facility] [address]-82 5 MG Orally Once a day January 25, 2014 Active 1 tablet Social History Social History Element Qualifiers Date Reported Ethnicity . Status , Is hungarian your primary language? Yes Apr 12, 2014 [...]
--- NOTE | 2018-06-22 08:15 | Operative Report ---
DATE OF PROCEDURE: PROCEDURES PERFORMED 1. Left heart catheterization. 2. Selective coronary angiogram. 3. Left ventriculogram. 4. Graft injection. 5. Ascending and arch aortogram. 6. Selective carotid angiogram. INDICATIONS: CAD, history of CABG, chest pain, and carotid stenosis and carotid endarterectomy. ANESTHESIA: Lidocaine 2% for local anesthesia, fentanyl and Versed for conscious sedation. BLOOD LOSS: 5 mL. DESCRIPTION OF PROCEDURE: After informed consent, patient was brought to the cardiac catheterization laboratory and placed on the table. Both groins were painted and draped in a sterile fashion. Lidocaine was injected in the right groin for local anesthesia. Right femoral artery was accessed by Seldinger technique, and a 5-Faroese sheath was placed in the right femoral artery. Left main artery was cannulated using a 3DRC 5-Faroese catheter. Coronary angiogram was performed and images obtained in multiple views. LV gram was performed using a pigtail catheter. The BAILEY to the LAD was cannulated using a BAILEY catheter. Coronary angiogram was performed and images obtained in multiple views. Ascending and arch aortogram was performed using a pigtail catheter. The saphenous vein graft to the circumflex was cannulated using LCB catheter. Coronary angiogram was performed. Images were obtained in multiple views. The right common carotid artery was cannulated using the LCB catheter. Carotid angiogram was performed, images were obtained in multiple views. The left common carotid artery was cannulated using a Control Engineer catheter. Coronary angiogram was performed and images were obtained in multiple views. Patient tolerated the procedure without any complications. REPORT LEFT MAIN: It is a short vessel and has luminal irregularities. LEFT ANTERIOR DESCENDING: Normal caliber and there is 60% to 70% proximal/mid lesion. LEFT CIRCUMFLEX: Normal caliber, it is diffusely diseased with about 60% mid lesion followed by another 60% to 70% mid lesion. The obtuse marginal branch is diffusely diseased [facility] obtuse marginal branch having 50% to 60% lesion. RIGHT CORONARY ARTERY: Normal caliber, mild luminal irregularities, 30% mid lesion. BAILEY TO LAD: Patent. Saphenous vein graft to the left circumflex is patent with about a 30% proximal lesion. LV-GRAM: Normal LV function, overall ejection fraction is about 60%. HEMODYNAMICS: Aortic pressure is 147/68. LV pressure 138/5. LVEDP is 14. Ascending aortogram and arch aortogram shows mild atherosclerotic plaquing. Carotid angiogram: Right side common carotid artery has luminal irregularities. Internal carotid artery is tortuous. There is some kinking in the proximal segment of the internal carotid artery. No significant stenosis noted. External carotid artery is totally occluded at its origin. Left carotid system: Common carotid artery has mild diffuse disease. Internal carotid artery has about a 20% to 30% proximal lesion. External carotid artery has luminal irregularities. PLAN: Medical management. Job#: [id number] CF SATYA
== END | disposition home or self-care (01) ==
LOC: CATH LAB 07:22
DX: I25.810 Atherosclerosis of coronary artery bypass graft(s) without angina pectoris (principal); Z95.1 Presence of aortocoronary bypass graft; I65.21 Occlusion and stenosis of right carotid artery; I70.213 Atherosclerosis of native arteries of extremities with intermittent claudication, bilateral legs; I10 Essential (primary) hypertension; I77.1 Stricture of artery; D64.9 Anemia, unspecified; E03.9 Hypothyroidism, unspecified; E11.9 Type 2 diabetes mellitus without complications; Z88.6 Allergy status to analgesic agent; Z01.810 Encounter for preprocedural cardiovascular examination; Z01.812 Encounter for preprocedural laboratory examination; Z01.818 Encounter for other preprocedural examination; Z79.4 Long term (current) use of insulin; Z79.02 Long term (current) use of antithrombotics/antiplatelets; Z79.82 Long term (current) use of aspirin; Z68.32 Body mass index [BMI] 32.0-32.9, adult; Z82.49 Family history of ischemic heart disease and other diseases of the circulatory system
CPT/HCPCS: 36222; 36415; 71046; 80053; 85025; 85610; 85730; 93005; 93459; C1769; J2001; J2250; J7030; Q9967

== ENCOUNTER 2018-11-03 04:53 | Emergency (ER) | payer BC, MEDICARE ==
[~2018-11-03] VITALS: Ht 160 cm; Wt 80.7 kg
[~2018-11-03 04:53] MED LIST changes: -FENTANYL CITRATE/PF 100MCG/2 ML INJ ONE; -HEPARIN SOD/SOD CHLORIDE 2,000 ML ONE; -IOPAMIDOL 370 MG/ML 200 ML INFUS..BTL INJ ONE; -LIDOCAINE HCL 1% LOCAL INJ 20 ML VIAL ONE; -MIDAZOLAM HCL 2 MG/2 ML VIAL ONE; -SODIUM CHLORIDE 0.9% 1000ML 1,000 ML ONE
--- OUTSIDE RECORDS SUMMARY | 2018-11-03 04:57 | XMS REPORT | Continuity of Care Document ---
Author Author [facility] Interface Address Unknown Phone Unavailable Problems Problem [...] Active 10 MEQ Orally Twice a day [facility] 06/10/2014 [facility] GlyBURIDE 1 tablet Orally Active 5 MG Orally Once a day [facility] 01/25/2014 [facility] Synthroid 1 tablet on an empty stomach in the morning Orally Active 25 MCG Orally Once a day [facility] 01/11/2014 [facility] Omeprazole 1 capsule Orally Active 40 mg Orally Once a day [facility] 12/07/2013 [facility] Omeprazole 1 capsule Orally Active 40 mg Orally Once a day [facility] 12/07/2013 [facility] Zithromax Z-Sukhdev 2 tablets on the first day, then 1 tablet daily for 4 days Orally Active 250 MG Orally Once a day [facility] 11/08/2013 [facility] GlyBURIDE 2 tablets Orally No Longer Active 5 MG Orally Once a day [facility] 10/06/2013 [facility] Levaquin 1 tablet Orally Active 500 mg Orally Once a day [facility] 09/06/2013 [facility] Medrol (Sukhdev) as directed Orally Active 4 mg Orally as directed [facility] 09/06/2013 [facility] Janumet 1 tablet with meals Orally Active 50-1000 MG Orally Twice a day [facility] 08/13/2013 [facility] Nebulizer as directed inhalation therapy Active Nebulizer inhalation therapy q 4-[address] [facility] 08/10/2013 [facility] Nebulizer as directed inhalation therapy Active Nebulizer inhalation therapy q 4-[address] [facility] 08/10/2013 [facility] Plavix 1 tablet Orally Active 75 MG Orally Once a day [facility] 07/27/2013 [facility] Insulin Syringe as directed SQ Active 31G X 5/16" 0.5 ML SQ once every night DX: 250.00 [facility] 05/28/2013 [facility] Patanol 1 drop into affected eye Ophthalmic Active 0.1 % Ophthalmic Twice a day [facility] 04/04/2013 [facility] Losartan Potassium 1 tablet Orally Active 25 MG Orally Once a day [facility] 04/04/2013 [facility] Proventil HFA 2 puffs as needed Inhalation Active 108 (90 Base) MCG/ACT Inhalation every 4-[address] [facility] 03/12/2013 [facility] Nexium 1 capsule Orally Active 40 mg Orally Once a day [facility] 02/12/2013 [facility] Lantus 16 units Subcutaneous Active 100 UNIT/ML Subcutaneous qhs [facility] 12/22/2012 [facility] Clopidogrel Bisulfate 1 tablet Orally Active 75 mg Orally Once a day [facility] Nexium TAKE 1 CAPSULE DAILY NA No Longer Active 40MG [facility] Ecotrin 1 tablet Orally Active 325 MG Orally Once a day [facility] Klor-Con M10 1 tablet Orally Active 10 MEQ Orally Twice a day [facility] Vytorin 1 tablet Orally Active 10-20 MG Orally Once a day [facility] Loratadine 1 tablet Orally Active 10 mg Orally Once a day [facility] Metoprolol Succinate ER 1 tablet Orally Active 100MG Orally Once a day [facility] Furosemide 1 tablet Orally Active 20 mg Orally Once a day [facility] Albuterol Sulfate 3 ml via nebulizer Inhalation Active (2.5 MG/3ML) 0.083% Inhalation prn [facility] Ipratropium [place] as needed via nebulizer Inhalation Active 0.02 % Inhalation [facility] Vytorin 1 tablet Orally Active 10-20 MG Orally Once a day [facility] GlyBURIDE 1 tablet Orally No Longer Active 5 MG Orally Once a day [facility] Janumet 1 tablet with meals Orally Active 50-1000 MG Orally Twice a day [facility] Metoprolol Succinate ER 1 tablet Orally Active 100 mg Orally Once a day [facility] Allergies, Adverse Reactions, Alerts Substance Category Reaction Severity Reaction type Status Date Reported Comments Source Codeine Phosphate Adverse Reaction itchy Adverse Reaction Active 07/29/2014 [facility] Immunizations Immunization Date Given Site Status Last Updated Comments Source Results Order Name Results Value Reference Range Date Interpretation Comments Source Vital Signs Vital Sign Value Date Comments Source Weight 193 07/29/2014 [facility] Height 63 07/29/2014 [facility] Heart Rate 86 [facility] Heart Rate 68 07/06/2013 [facility] Diastolic (mm Hg) 70 07/06/2013 [facility] Systolic (mm Hg) 110 07/06/2013 [facility] Encounters Location Location Details Encounter Type Encounter Number Reason For Visit Attending Provider ADM Date DC Date Status Source [facility] rx refill [id number] 07/27/2013 07/27/2013 [facility] rx refill [id number] 07/27/2013 07/27/2013 [facility] rx refill [id number] 07/27/2013 07/27/2013 [facility] rx refill [id number] 07/27/2013 07/27/2013 [facility] rx refill [id number] 07/27/2013 07/27/2013 [facility] rx refill [id number] 07/27/2013 07/27/2013 [facility] rx refill [id number] 07/27/2013 07/27/2013 [facility] rx refill [id number] 07/27/2013 07/27/2013 [facility] rx refill [id number] 07/27/2013 07/27/2013 [facility] rx refill [id number] 07/27/2013 07/27/2013 [facility] rx refill [id number] 07/27/2013 07/27/2013 [facility] rx refill [id number] 07/27/2013 07/27/2013 [facility] rx refill [id number] 07/27/2013 07/27/2013 [facility] rx refill [id number] 07/27/2013 07/27/2013 [facility] rx refill [id number] 07/27/2013 07/27/2013 [facility] rx refill [id number] 07/27/2013 07/27/2013 [facility] rx refill [id number] 07/27/2013 07/27/2013 [facility] rx refill [id number] 07/27/2013 07/27/2013 [facility] rx refill [id number] 07/27/2013 07/27/2013 [facility] Internal [facility] [id number] 08/10/2013 08/10/2013 [facility] [id number] 08/10/2013 08/10/2013 [facility] [id number] 08/10/2013 08/10/2013 [facility] [id number] 08/10/2013 08/10/2013 [facility] [id number] 08/10/2013 08/10/2013 [facility] Internal [facility] [id number] 08/10/2013 08/10/2013 [facility] [id number] 08/10/2013 08/10/2013 [facility] [id number] 08/10/2013 08/10/2013 [facility] [id number] 08/10/2013 08/10/2013 [facility] [id number] 08/10/2013 08/10/2013 [facility] [id number] 08/10/2013 08/10/2013 [facility] [id number] 08/10/2013 08/10/2013 [facility] [id number] 08/10/2013 08/10/2013 [facility] [id number] 08/10/2013 08/10/2013 [facility] [id number] 08/10/2013 08/10/2013 [facility] [id number] 08/10/2013 08/10/2013 [facility] Internal [facility] [id number] 09/06/2013 09/06/2013 [facility] [id number] 09/06/2013 09/06/2013 [facility] Internal [facility] [id number] 09/06/2013 09/06/2013 [facility] [id number] 09/06/2013 09/06/2013 [facility] [id number] 09/06/2013 09/06/2013 [facility] [id number] 09/06/2013 09/06/2013 [facility] [id number] 09/06/2013 09/06/2013 [facility] [id number] 09/06/2013 09/06/2013 [facility] [id number] 09/06/2013 09/06/2013 [facility] [id number] 09/06/2013 09/06/2013 [facility] [id number] 09/06/2013 09/06/2013 [facility] [id number] 09/06/2013 09/06/2013 [facility] [id number] 09/06/2013 09/06/2013 [facility] [id number] 09/06/2013 09/06/2013 [facility] sick [id number] 09/06/2013 09/06/2013 [facility] sick [id number] 09/06/2013 09/06/2013 [facility] sick [id number] 09/06/2013 09/06/2013 [facility] sick [id number] 09/06/2013 09/06/2013 [facility] 3 month f/u [id number] 10/12/2013 10/12/2013 [facility] 3 month f/u [id number] 10/12/2013 10/12/2013 [facility] 3 month f/u [id number] 10/12/2013 10/12/2013 [facility] 3 month f/u [id number] 10/12/2013 10/12/2013 [facility] 3 month f/u [id number] 10/12/2013 10/12/2013 [facility] 3 month f/u [id number] 10/12/2013 10/12/2013 [facility] 3 month f/u [id number] 10/12/2013 10/12/2013 [facility] 3 month f/u [id number] 10/12/2013 10/12/2013 [facility] 3 month f/u [id number] 10/12/2013 10/12/2013 [facility] 3 month f/u [id number] 10/12/2013 10/12/2013 [facility] 3 month f/u [id number] 10/12/2013 10/12/2013 [facility] 3 month f/u [id number] 10/12/2013 10/12/2013 [facility] 3 month f/u [id number] 10/12/2013 10/12/2013 [facility] 3 month f/u [id number] 10/12/2013 10/12/2013 [facility] 3 month f/u [id number] 10/12/2013 10/12/2013 [facility] 3 month f/u [id number] 10/12/2013 10/12/2013 [facility] Sick [id number] 11/08/2013 11/08/2013 [facility] Sick [id number] 11/08/2013 11/08/2013 [facility] Sick [id number] 11/08/2013 11/08/2013 [facility] Sick [id number] 11/08/2013 11/08/2013 [facility] Sick [id number] 11/08/2013 11/08/2013 [facility] Sick [id number] 11/08/2013 11/08/2013 [facility] Sick [id number] 11/08/2013 11/08/2013 [facility] Sick [id number] 11/08/2013 11/08/2013 [facility] Sick [id number] 11/08/2013 11/08/2013 [facility] Sick [id number] 11/08/2013 11/08/2013 [facility] Sick [id number] 11/08/2013 11/08/2013 [facility] Sick [id number] 11/08/2013 11/08/2013 [facility] Sick [id number] 11/08/2013 11/08/2013 [facility] Sick [id number] 11/08/2013 11/08/2013 [facility] Sick [id number] 11/08/2013 11/08/2013 [facility] Sick [id number] 11/08/2013 11/08/2013 [facility] Sick [id number] 11/08/2013 11/08/2013 [facility] PHYSICAL [id number] 12/07/2013 12/07/2013 [facility] PHYSICAL [id number] 12/07/2013 12/07/2013 [facility] PHYSICAL [id number] 12/07/2013 12/07/2013 [facility] PHYSICAL [id number] 12/07/2013 12/07/2013 [facility] PHYSICAL [id number] 12/07/2013 12/07/2013 [facility] PHYSICAL [id number] 12/07/2013 12/07/2013 [facility] PHYSICAL [id number] 12/07/2013 12/07/2013 [facility] PHYSICAL [id number] 12/07/2013 12/07/2013 [facility] PHYSICAL [id number] 12/07/2013 12/07/2013 [facility] PHYSICAL [id number] 12/07/2013 12/07/2013 [facility] PHYSICAL [id number] 12/07/2013 12/07/2013 [facility] PHYSICAL [id number] 12/07/2013 12/07/2013 [facility] PHYSICAL [id number] 12/07/2013 12/07/2013 [facility] PHYSICAL [id number] 12/07/2013 12/07/2013 [facility] [id number] 01/04/2014 01/04/2014 [id number] [id number] 01/04/2014 01/04/2014 [facility] [id number] 01/04/2014 01/04/2014 [facility] [place] [id number] 01/04/2014 01/04/2014 [facility] [place] [id number] 01/04/2014 01/04/2014 [facility] [place] [id number] 01/04/2014 01/04/2014 [facility] [place] [id number] 01/04/2014 01/04/2014 [facility] [place] [id number] 01/04/2014 01/04/2014 [facility] [place] [id number] 01/04/2014 01/04/2014 [facility] [place] [id number] 01/04/2014 01/04/2014 [facility] Test results [id number] 01/11/2014 01/11/2014 [facility] Test results [id number] 01/11/2014 01/11/2014 [facility] Test results [id number] 01/11/2014 01/11/2014 [facility] Test results [id number] 01/11/2014 01/11/2014 [facility] Test results [id number] 01/11/2014 01/11/2014 [facility] Test results [id number] 01/11/2014 01/11/2014 [facility] Test results [id number] 01/11/2014 01/11/2014 [facility] Test results [id number] 01/11/2014 01/11/2014 [facility] Test results [id number] 01/11/2014 01/11/2014 [facility] Test results [id number] 01/11/2014 01/11/2014 [facility] Test results [id number] 01/11/2014 01/11/2014 [facility] Test results [id number] 01/11/2014 01/11/2014 [facility] Test results [id number] 01/11/2014 01/11/2014 [facility] Follow-Up labs [id number] 01/25/2014 01/25/2014 [facility] Follow-Up labs [id number] 01/25/2014 01/25/2014 [facility] Follow-Up labs [id number] 01/25/2014 01/25/2014 [facility] Follow-Up labs [id number] 01/25/2014 01/25/2014 [facility] Follow-Up labs [id number] 01/25/2014 01/25/2014 [facility] Follow-Up labs [id number] 01/25/2014 01/25/2014 [facility] Follow-Up labs [id number] 01/25/2014 01/25/2014 [facility] Follow-Up labs [id number] 01/25/2014 01/25/2014 [facility] Follow-Up labs [id number] 01/25/2014 01/25/2014 [facility] Follow-Up labs [id number] 01/25/2014 01/25/2014 [facility] Follow-Up labs [id number] 01/25/2014 01/25/2014 [facility] Follow-Up labs [id number] 01/25/2014 01/25/2014 [facility] Unknown [id number] 01/29/2014 01/29/2014 [facility] Unknown [id number] 01/29/2014 01/29/2014 [facility] Unknown [id number] 01/29/2014 01/29/2014 [facility] Unknown [id number] 01/29/2014 01/29/2014 [facility] Unknown [id number] 01/29/2014 01/29/2014 [facility] Unknown [id number] 01/29/2014 01/29/2014 [facility] Unknown [id number] 01/29/2014 01/29/2014 [facility] Unknown [id number] 01/29/2014 01/29/2014 [facility] Unknown [id number] 01/29/2014 01/29/2014 [facility] Unknown [id number] 01/29/2014 01/29/2014 [facility] Unknown [id number] 01/29/2014 01/29/2014 [facility] Unknown [id number] 01/29/2014 01/29/2014 [facility] REFILL [id number] 03/12/2014 03/12/2014 [facility] REFILL [id number] 03/12/2014 03/12/2014 [facility] REFILL [id number] 03/12/2014 03/12/2014 [facility] REFILL [id number] 03/12/2014 03/12/2014 [facility] REFILL [id number] 03/12/2014 03/12/2014 [facility] REFILL [id number] 03/12/2014 03/12/2014 [facility] REFILL [id number] 03/12/2014 03/12/2014 [facility] REFILL [id number] 03/12/2014 03/12/2014 [facility] REFILL [id number] 03/12/2014 03/12/2014 [facility] REFILL [id number] 03/12/2014 03/12/2014 [facility] Refill [id number] 03/21/2014 03/21/2014 [facility] Refill [id number] 03/21/2014 03/21/2014 [facility] Refill [id number] 03/21/2014 03/21/2014 [facility] Refill [id number] 03/21/2014 03/21/2014 [facility] Refill [id number] 03/21/2014 03/21/2014 [facility] Refill [id number] 03/21/2014 03/21/2014 [facility] Refill [id number] 03/21/2014 03/21/2014 [facility] Refill [id number] 03/21/2014 03/21/2014 [facility] Refill [id number] 03/21/2014 03/21/2014 [facility] Refill [id number] 03/21/2014 03/21/2014 [facility] Unknown [id number] 03/22/2014 03/22/2014 [facility] Unknown [id number] 03/22/2014 03/22/2014 [facility] Unknown [id number] 03/22/2014 03/22/2014 [facility] Unknown [id number] 03/22/2014 03/22/2014 [facility] Unknown [id number] 03/22/2014 03/22/2014 [facility] Unknown [id number] 03/22/2014 03/22/2014 [facility] Unknown [id number] 03/22/2014 03/22/2014 [facility] Unknown [id number] 03/22/2014 03/22/2014 [facility] Unknown [id number] 03/22/2014 03/22/2014 [facility] Unknown [id number] 03/22/2014 03/22/2014 [facility] Refill [id number] 03/22/2014 03/22/2014 [facility] Refill [id number] 03/22/2014 03/22/2014 [facility] Refill [id number] 03/22/2014 03/22/2014 [facility] Refill [id number] 03/22/2014 03/22/2014 [facility] Refill [id number] 03/22/2014 03/22/2014 [facility] Refill [id number] 03/22/2014 03/22/2014 [facility] Refill [id number] 03/22/2014 03/22/2014 [facility] Refill [id number] 03/22/2014 03/22/2014 [facility] Refill [id number] 03/22/2014 03/22/2014 [facility] Refill [id number] 03/22/2014 03/22/2014 [facility] 3 month follow-up [id number] 04/12/2014 04/12/2014 [facility] 3 month follow-up [id number] 04/12/2014 04/12/2014 [facility] 3 month follow-up [id number] 04/12/2014 04/12/2014 [facility] 3 month follow-up [id number] 04/12/2014 04/12/2014 [facility] 3 month follow-up [id number] 04/12/2014 04/12/2014 [facility] 3 month follow-up [id number] 04/12/2014 04/12/2014 [facility] 3 month follow-up [id number] 04/12/2014 04/12/2014 [facility] 3 month follow-up [id number] 04/12/2014 04/12/2014 [facility] 3 month follow-up [id number] 04/12/2014 04/12/2014 [facility] Refill [id number] 05/13/2014 05/13/2014 [facility] Refill [id number] 05/13/2014 05/13/2014 [facility] Refill [id number] 05/13/2014 05/13/2014 [facility] Refill [id number] 05/13/2014 05/13/2014 [facility] 3 month follow up [id number] 07/12/2014 07/12/2014 [facility] 3 month follow up [id number] 07/12/2014 07/12/2014 [facility] 3 month follow up [id number] 07/12/2014 07/12/2014 [facility] Refill [id number] 07/17/2014 07/17/2014 [facility] Refill [id number] 07/17/2014 07/17/2014 [facility] Refill [id number] 07/17/2014 07/17/2014 [facility] Abnormal labs [id number] 07/29/2014 07/29/2014 [facility] Abnormal labs [id number] 07/29/2014 07/29/2014 [facility] Abnormal labs [id number] 07/29/2014 07/29/2014 [facility] Procedures Procedure Code Date Perfomer Comments Source
[2018-11-03 05:36] LABS: BASOPHILS # (AUTO) 0.1 (0.0-0.1); BASOPHILS % 0.7 % (0.0-1.0); EOSINOPHILS # (AUTO) 0.3 (0.0-0.4); EOSINOPHILS % 3.6 % (0.0-6.0); HEMATOCRIT 33.8 % (34.2-44.1); LYMPHOCYTES # (AUTO) 1.9 (1.0-3.2); LYMPHOCYTES % 26.4 % (18.0-39.1); MEAN CORPUSCULAR HEMOGLOBIN 29.5 pg (28-32); MEAN CORPUSCULAR HGB CONC 32.5 g/dL (31-35); MEAN CORPUSCULAR VOLUME 90.6 fL (81-99); MONOCYTES # (AUTO) 0.6 (0.2-0.8); MONOCYTES % 8.1 % (4.4-11.3); NEUTROPHILS # (AUTO) 4.5 (2.1-6.9); NEUTROPHILS % 60.9 % (38.7-80.0); PLATELET COUNT 198 x10e3/uL (140-360); RED BLOOD COUNT 3.73 x10e6/uL (3.6-5.1); RED CELL DISTRIBUTION WIDTH 13.2 % (11.7-14.4)
[2018-11-03 06:00] LABS: ALANINE AMINOTRANSFERASE 11 IU/L (0-55); ALBUMIN 3.6 g/dL (3.5-5.0); ALBUMIN/GLOBULIN RATIO 1.1 (0.8-2.0); ALKALINE PHOSPHATASE 84 IU/L (40-150); BLOOD UREA NITROGEN 19 mg/dL (7-26); BUN/CREATININE RATIO 22 (6-25); CALCIUM 9.6 mg/dL (8.4-10.2); CARBON DIOXIDE 29 mmol/L (22-29); CHLORIDE 104 mmol/L (98-107); CREATINE KINASE 51 IU/L (29-168); CREATININE, SERUM 0.85 mg/dL (0.57-1.11); EST GLOMERULAR FILTRATION RATE > 60 ML/MIN (60-); GLUCOSE 139 mg/dL (74-118); SODIUM 141 mmol/L (136-145)
--- NOTE | 2018-11-03 06:16 | Diagnostic Imaging Report ---
EXAMINATION: CHEST 2 VIEWS INDICATION: Left side chest pain for 2 weeks ^LEFT CHEST/BACK PAIN ^Y COMPARISON: Chest x-ray 06/20/2018 FINDINGS: PA and lateral views TUBES and LINES: MediPort catheter is in the right chest wall with the tip in the SVC. This is stable LUNGS: Lungs are well inflated. A thin almost radiolucent object external to the patient at the right lung base measures 5.2 cm in greatest dimension. There is no evidence of pneumonia or pulmonary edema. PLEURA: No pleural effusion or pneumothorax. HEART AND MEDIASTINUM: The cardiomediastinal silhouette is unremarkable.. BONES AND SOFT TISSUES: No focal osseous lesions. Median sternotomy wires are intact. Surgical clips in the lower right neck are stable. UPPER ABDOMEN: No free air under the diaphragm. IMPRESSION: No acute thoracic abnormality. Signed by: Dr. Bianca Quinteros MD on 11/03/2018 6:12 AM
[2018-11-03 06:21] LABS: CREATINE KINASE MB < 1.00 ng/mL (0-4.3)
[2018-11-03 06:26] VITALS: BP 134/49
== END 2018-11-03 06:40 | disposition home or self-care (01) ==
LOC: ER 04:53
DX: R07.89 Other chest pain (principal); M54.9 Dorsalgia, unspecified
CPT/HCPCS: 36415; 71046; 80053; 82550; 82553; 84484; 85025; 93005; 99284

== ENCOUNTER 2019-06-15 11:44 | Emergency (ER) | payer OTHER, BC ==
[~2019-06-15] VITALS: Ht 160 cm; Wt 80.7 kg
[2019-06-15] MEDS ORDERED: HYDROCODONE/APAP 10MG-325MG TAB PO ONE (12:15)
[2019-06-15] MEDS ORDERED: ONDANSETRON HCL 4 MG ORAL DISINTEGRATING TAB PO ONE (12:30)
--- NOTE | 2019-06-15 14:20 | Diagnostic Imaging Report ---
Exam: Head CT without contrast History: Trauma, fall Comparison studies: None Technique: Axial images were obtained from the skull base to the vertex. Coronal and sagittal images reconstructed from the axial data. Dose modulation, iterative reconstruction, and/or weight based adjustment of the mA/kV was utilized to reduce the radiation dose to as low as reasonably achievable. Radiation dose: Total DLP: 1220 mGy*cm. Estimated effective dose: DLP x 0.015 Intravenous contrast: None Findings: Scalp: No abnormalities. Bones: No fractures, blastic or lytic lesions. Brain sulci: Appropriate for age. Ventricles: Normal in size and configuration. No hydrocephalus. Extra-axial spaces: A partially calcified dural based 13 mm x 4 mm lesion at the posterior left frontal convexity without significant mass effect is most likely a meningioma. Parenchyma: No mass, acute hemorrhage or acute or chronic cortical insults. A few subtle hypodensities in the supratentorial white matter are nonspecific but are most compatible with chronic microvascular ischemic changes. Sellar/suprasellar region: No abnormalities. Craniocervical junction: Patent foramen magnum. No Chiari one malformation. Incidental findings: Right lens replacement for previous cataract surgery. Calcified atherosclerosis in the carotid siphons and intradural vertebral arteries. IMPRESSION: 1. No acute intracranial abnormalities. 2. Mild chronic microvascular ischemic changes. 3. Partially calcified 13 mm dural based lesion at the left frontal convexity without mass effect is most likely a meningioma. Signed by: Dr. Shailesh Schroeder M.D. on 06/15/2019 2:16 PM
--- NOTE | 2019-06-15 14:28 | Diagnostic Imaging Report ---
History: Trauma, fall Comparison studies: None Technique: Axial images were obtained through the cervical region.. Coronal and sagittal images reconstructed from the axial data.. Intravenous contrast: None Findings: Fractures: None. Soft tissue injuries: None. Atlantoaxial articulation: Intact. Alignment: Strain cervical curvature may be positional. No subluxations. Cervicomedullary junction: No abnormalities. The foramen magnum is patent. Soft tissues: No abnormalities. Vertebrae: No fractures, infection or neoplasm. Degenerative changes: Degenerated partially calcified disc with overall maintained disc height from C2 to C5 and mildly degenerated disc with loss of disc height at C5-C6. Small disc osteophyte complexes, calcified disc bulges from C3 to C6 without significant canal stenosis. Partially calcified ligament flava in the distal cervical and included upper thoracic spine. Patent foramina. Incidental finds: Partially imaged right central venous catheter. 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 Partially imaged postsurgical changes with surgical clips in the right neck, can correlate with surgical history. IMPRESSION: 1. No cervical spine fracture or subluxation. 2. Ligament, spinal cord and or vascular abnormalities cannot be excluded on the basis of this examination Signed by: Dr. Shailesh Schroeder M.D. on 06/15/2019 2:25 PM
--- NOTE | 2019-06-15 14:57 | NUR ---
PT OFFERED FX BEDPAN TO USE RESTROOM, REFUSED TO USE BEDPAN, ASSISTED TO BEDSIDE COMMODE, AMBULATORY WITH STEADY GAIT AND MINIMAL ASSISTANCE.
--- NOTE | 2019-06-15 15:09 | Diagnostic Imaging Report ---
EXAMINATION: KNEE THREE VIEWS BILATERAL INDICATION: Trauma COMPARISON: None FINDINGS: No acute fracture or dislocation. Alignment is anatomic. No substantial joint effusion. There are moderate tricompartmental degenerative changes with joint space narrowing and osteophyte formation. Atherosclerotic arterial calcifications. IMPRESSION: No acute osseous injury. Moderate tricompartment degenerative changes. Signed by: Meme Finley MD on 06/15/2019 3:06 PM
--- NOTE | 2019-06-15 15:10 | Diagnostic Imaging Report ---
EXAMINATION: PELVIS AP 1-2 VIEWS INDICATION: Trauma COMPARISON: None FINDINGS: No acute fracture or dislocation. Alignment is anatomic. Mild degenerative changes of both hip joints and of the lower lumbar spine. Nonobstructive bowel gas pattern. Athetotic arterial calcifications. IMPRESSION: No acute osseous injury. Signed by: Meme Finely MD on 06/15/2019 3:07 PM
--- NOTE | 2019-06-15 15:12 | Diagnostic Imaging Report ---
EXAMINATION: CHEST SINGLE (NOT PORTABLE) INDICATION: Trauma COMPARISON: Chest radiograph of 11/03/2018 FINDINGS: LINES/TUBES:Right chest port with tip terminating in the superior vena cava. LUNGS:The lungs are well-inflated. No focal consolidation or pulmonary edema. PLEURA:No pleural effusion or pneumothorax. MEDIASTINUM:The cardiomediastinal silhouette appears unchanged in size and shape. Atherosclerotic calcifications of the thoracic aorta. BONES/SOFT TISSUES:No acute osseous injury. ABDOMEN:No free air under the diaphragm. Status post cholecystectomy IMPRESSION: No radiographic evidence of acute traumatic injury to the thorax. No focal pneumonia or pulmonary edema. Signed by: Meme Finley MD on 06/15/2019 3:09 PM
--- NOTE | 2019-06-15 15:13 | Diagnostic Imaging Report ---
EXAMINATION: ELBOW THREE VIEWS BILATERAL INDICATION: Trauma COMPARISON: None FINDINGS: Right elbow: No acute fracture or dislocation. Alignment is anatomic. No joint effusion. Soft tissues appear unremarkable. Left elbow: No acute fracture or dislocation. Alignment appears anatomic. No joint effusion. The soft tissues appear unremarkable. IMPRESSION: No acute osseous injury. Signed by: Meme Finley MD on 06/15/2019 3:10 PM
--- NOTE | 2019-06-15 15:16 | Diagnostic Imaging Report ---
EXAMINATION: SHOULDER COMPLETE BILATERAL INDICATION: Trauma COMPARISON: None FINDINGS: Right shoulder: No acute fracture or dislocation. Alignment is anatomic. Right chest port partially visualized. Partially visualized right lung is clear. Left shoulder: No acute fracture or dislocation. Alignment is anatomic. Contour irregularity along the superolateral aspect of the left humeral head may be related to sequela of remote dislocation. Partially visualized left lung is clear. IMPRESSION: No acute osseous injury. Signed by: Meme Finley MD on 06/15/2019 3:13 PM
[2019-06-15] MEDS ORDERED: ULTRAM50 MG PO (15:53)
[2019-06-15 17:18] VITALS: BP 129/52
== END 2019-06-15 16:30 | disposition home or self-care (01) ==
LOC: ER 11:57
DX: M25.562 Pain in left knee (principal); M25.561 Pain in right knee; M25.511 Pain in right shoulder; S00.83XA Contusion of other part of head, initial encounter; S20.02XA Contusion of left breast, initial encounter; S50.312A Abrasion of left elbow, initial encounter; M25.522 Pain in left elbow; M25.521 Pain in right elbow; W01.0XXA Fall on same level from slipping, tripping and stumbling without subsequent striking against object, initial encounter; Y93.01 Activity, walking, marching and hiking; Y92.238 Other place in hospital as the place of occurrence of the external cause
CPT/HCPCS: 70450; 71045; 72125; 72170; 73030; 73080; 73562; 99284; Q0162

== ENCOUNTER → 2020-03-01 | Emergency (ER) | payer BC, MEDICARE, OTHER ==
[~2020-03-01] VITALS: Ht 160 cm; Wt 80.7 kg
[~2020-03-01] MED LIST changes: +ACETAMINOPHEN 325 MG TAB PO PRN; +ASPIRIN 81 MG CHEW TAB PO ONE; +AZITHROMYCIN 500MG/NS 250 ML 250 ML IV SCH; +NOREPINEPHRINE 8 MG/D5W 250 ML 250 ML ONE; +SODIUM CHLORIDE 0.9% 1000ML 1,000 ML IV SCH; +ULTRAM50 MG PO
--- NOTE | 2020-03-01 15:40 | Emergency Department Note ---
History of Present Illnes History of Present Illness Chief Complaint: COVID PUI History of Present Illness This is a 69 year old female with 2 week h/o of cough and fever. Patient states that she was seen by PCP and was given abx with little to no relief. Patient seen in triage with noted oxygen saturation at 88% on RA. 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 Any updates have been documented here. Past Medical History Recent Fever: Yes Clinical Suspicion of Infectio: Yes New/Unexplained Change in Ment: No Past Medical History: Hypertension, Diabetes, Hypothyroidism, GERD, Hyp erlipedemia, DVT/PE Other Medical History: High cholesterol Crohns DVT-resolved Past Surgical History: CABG, Hernia Repair, Back Surgery Other Surgery: CABGx2 Hernia Repair Back surgery BILATERAL CEA LEFT ROTATOR CUFF "BALOON LT LEG" RT SIDE PORT- IRON INFUSIONS Social History Smoking Cessation: Never Smoker Alcohol Use: None Any Illegal Drug Use: No Other Last Tetanus: OOD Review of Systems Review of Systems Constitutional: Reports fever, Reports malaise, Reports weakness EENTM: Reports no symptoms Cardiovascular: Reports no symptoms Respiratory: Reports cough Gastrointestinal: Reports no symptoms Genitourinary: Reports no symptoms Musculoskeletal: Reports no symptoms Integumentary: Reports no symptoms Neurological: Reports no symptoms Psychological: Reports no symptoms Endocrine: Reports no symptoms Hematological/Lymphatic: Reports no symptoms Physical Exam Related Data Allergies: Coded Allergies: codeine (Verified Allergy, Mild, BURNING SENSATION, 04/05/17) Triage Vital Signs Vital Signs Date Time Temp Pulse Resp B/P (MAP) Pulse Ox O2 Delivery O2 Flow Rate FiO2 03/01/20 15:38 98.5 99 22 119/74 88 Vital signs reviewed: Yes Physical Exam CONSTITUTIONAL Constitutional: Present distressed, Present ill appearing HENT HENT: Present normocephalic, Present atraumatic, Present oropharynx clear/moist, Present nose normal HENT L/R: Present left ext ear normal, Present right ext ear normal EYES Eyes: Reports PERRL, Reports conjunctivae normal NECK Neck: Present ROM normal PULMONARY Pulmonary: Present other (tachypnea) CARDIOVASCULAR Cardiovascular: Present regular rhythm, Present heart sounds normal, Present capillary refill normal, Present normal rate GASTROINTESTINAL Abdominal: Present soft, Present nontender, Present bowel sounds normal GENITOURINARY Genitourinary: Present exam deferred SKIN Skin: Present warm, Present dry MUSCULOSKELETAL Musculoskeletal: Present ROM normal NEUROLOGICAL Neurological: Present alert, Present oriented x 3, Present no gross motor or sensory deficits PSYCHOLOGICAL Psychological: Present mood/affect normal, Present judgement normal Results Laboratory Lab results reviewed: Yes Laboratory comments Laboratory Tests Test 03/01/20 16:35 03/01/20 15:48 White Blood Count 8.43 x10e3/uL (4.8-10.8) Red Blood Count 3.34 x10e6/uL (3.6-5.1) Hemoglobin 9.1 g/dL (12.0-16.0) Hematocrit 29.3 % (34.2-44.1) Mean Corpuscular Volume 87.7 fL (81-99) Mean Corpuscular Hemoglobin 27.2 pg (28-32) Mean Corpuscular Hemoglobin Concent 31.1 g/dL (31-35) Red Cell Distribution Width 14.2 % (11.7-14.4) Platelet Count 285 x10e3/uL (140-360) Neutrophils (%) (Auto) 85.7 % (38.7-80.0) Lymphocytes (%) (Auto) 8.2 % (18.0-39.1) Monocytes (%) (Auto) 5.0 % (4.4-11.3) Eosinophils (%) (Auto) 0.2 % (0.0-6.0) Basophils (%) (Auto) 0.1 % (0.0-1.0) Neutrophils # (Auto) 7.2 (2.1-6.9) Lymphocytes # (Auto) 0.7 (1.0-3.2) Monocytes # (Auto) 0.4 (0.2-0.8) Eosinophils # (Auto) 0.0 (0.0-0.4) Basophils # (Auto) 0.0 (0.0-0.1) Absolute Immature Granulocyte (auto 0.07 x10e3/uL (0-0.1) Sodium Level 135 mmol/L (136-145) Potassium Level 4.2 mmol/L (3.5-5.1) Chloride Level 100 mmol/L (98-107) Carbon Dioxide Level 25 mmol/L (22-29) Anion Gap 14.2 mmol/L (8-16) Blood Urea Nitrogen 19 mg/dL (7-26) Creatinine 1.12 mg/dL (0.57-1.11) Estimat Glomerular Filtration Rate 48 ML/MIN (60-) BUN/Creatinine Ratio 17 (6-25) Glucose Level 259 mg/dL (74-118) Calcium Level 10.1 mg/dL (8.4-10.2) Total Bilirubin 0.8 mg/dL (0.2-1.2) Aspartate Amino Transf (AST/SGOT) 155 IU/L (5-34) Alanine Aminotransferase (ALT/SGPT) 235 IU/L (0-55) Alkaline Phosphatase 108 IU/L (40-150) Creatine Kinase 54 IU/L (29-168) Creatine Kinase MB 0.50 ng/mL (0-5.0) Troponin I 0.010 ng/mL (0-0.300) B-Type Natriuretic Peptide 78.0 pg/mL (0-100) Total Protein 7.1 g/dL (6.5-8.1) Albumin 2.7 g/dL (3.5-5.0) Globulin 4.4 g/dL (2.3-3.5) Albumin/Globulin Ratio 0.6 (0.8-2.0) Imaging Imaging results reviewed: Yes Impressions [place] [address] Patient Name: WILBUR YUNG MR #: [id number] : 1950 Age/Sex: 69/F Req #: [id number] Adm Physician: Ordered by: VIRAL BETANCUR DO Report #: [id number] Location: ER Room/Bed: Procedure: [id number] DX/CHEST SINGLE (PORTABLE) Exam Date: 03/01/20 Exam Time: 1711 REPORT STATUS: Signed EXAMINATION: CHEST SINGLE (PORTABLE) INDICATION: SOB COVID COMPARISON: None FINDINGS: AP view TUBES and LINES: There is a Port-A-Cath in the right anterior chest wall with distal tip in SVC. LUNGS/PLEURA: There are bilateral patchy opacities could represent multifocal pneumonia. There is no pleural effusion or pneumothorax. HEART AND MEDIASTINUM: The cardiomediastinal silhouette is unremarkable. BONES AND SOFT TISSUES: No acute osseous lesion. Soft tissues are unremarkable. UPPER ABDOMEN: No free air under the diaphragm. IMPRESSION: Bilateral patchy opacities could represent multifocal pneumonia. Signed by: Khang Mae MD on 03/01/2020 5:33 PM Dictated By: KHANG MAE MD 32 Transcribed By: LUIS ARMANDO on 03/01/201732 COPY TO: VIRAL BETANCUR DO~ Procedures 12 Lead ECG Interpretation ECG Interpretation : ECG: ECG 1 Date: Mar 01, 2020 Time: 15:50 Prior ECG tracings: reviewed Rate: normal BPM: 95 Conduction: right bundle branch block ST segments normal: Yes T waves normal: Yes T wave inversion: V4, V5, V6 Clinical Impression: normal ECG Critical Care Time Total Critical Care Time (min): 31 Critcal care necessary due to: respiratory failure Critcal care time spent by me: develop tx plan w patient/surrogate, evaluation patient response to tx, examination of patient, obtaining hx from patient/ surrogate, order/perform tx or interventions, order/review laboratory studies, order/review radiographic studies, pulse oximetry Assessment & Plan Medical Decision Making MDM 69 yof presents to the ED for hypoxia and dyspnea. Diff Dx : pulmonary embolus, ACS, COVID-19 infection, Pneumonia, ARDS, CHF Assessment & Plan Final Impression: (1) Upper respiratory tract infection due to COVID-19 virus (2) Hypoxia Depart Disposition: TRANS TO OTHER [facility] Home Meds Active Scripts Tramadol Hcl (ULTRAM) 50 Mg Tablet, 50 MG PO Q6HR PRN for Mild Pain (1-3) or Fever>100.8, #10 TAB Prov:AILYN AYOUB, 06/15/19 Reported Medications Calcium Carb & Lact/Vitamin D3 (CALCET TABLET) 1 Each Tablet, 1 TAB PO BID 06/20/18 Lactobac Cmb #3/Fos/Pantethine (PROBIOTIC & ACIDOPHILUS CAP) 1 Each Capsule, 1 CAP PO DAILY 06/20/18 [Basaglar ] No Conflict Check, 26 UNIT SC HS 06/20/18 Mesalamine (APRISO) 0.375 Gm Cap.er.24h, 0.375 GM PO QID, #30 CAP 06/20/18 Methscopolamine [place] (METHSCOPOLAMINE BROMIDE) 2.5 Mg Tablet, 2.5 MG PO DAILY 04/05/17 Ranitidine Hcl (RANITIDINE HCL) 150 Mg Tablet, 150 MG PO HS 04/05/17 Metoprolol Succinate (METOPROLOL SUCCINATE) 100 Mg Tab.er.24h, 100 MG PO HS 02/25/15 Atorvastatin Calcium* (LIPITOR*) 10 Mg Tablet, 40 MG PO HS 02/25/15 Sitagliptin Phos/Metformin Hcl (JANUMET 50-1,000 MG TABLET) 1 Each Tablet, 1 TAB PO BID 02/25/15 Aspirin (ECOTRIN) 325 Mg Tablet.dr, 325 MG PO DAILY 02/25/15 Pantoprazole Sodium* (PROTONIX) 40 Mg Tablet.dr, 40 MG PO DAILY, TAB 02/25/15 Clopidogrel Bisulfate* (PLAVIX) 75 Mg Tablet, 75 MG PO DAILY, #30 TAB 02/25/15 Levothyroxine Sodium (LEVOTHYROXINE SODIUM) 25 Mcg Tablet, 25 MCG PO DAILY 02/25/15 VIRAL BETANCUR DO Mar 01, 2020 15:40
[2020-03-01 16:41] LABS: BASOPHILS % 0.1 % (0.0-1.0); EOSINOPHILS % 0.2 % (0.0-6.0); HEMATOCRIT 29.3 % (34.2-44.1); HEMOGLOBIN 9.1 g/dL (12.0-16.0); LYMPHOCYTES # (AUTO) 0.7 (1.0-3.2); LYMPHOCYTES % 8.2 % (18.0-39.1); MEAN CORPUSCULAR HEMOGLOBIN 27.2 pg (28-32); MEAN CORPUSCULAR HGB CONC 31.1 g/dL (31-35); MEAN CORPUSCULAR VOLUME 87.7 fL (81-99); MONOCYTES # (AUTO) 0.4 (0.2-0.8); NEUTROPHILS # (AUTO) 7.2 (2.1-6.9); NEUTROPHILS % 85.7 % (38.7-80.0); PLATELET COUNT 285 x10e3/uL (140-360); RED BLOOD COUNT 3.34 x10e6/uL (3.6-5.1); RED CELL DISTRIBUTION WIDTH 14.2 % (11.7-14.4)
[2020-03-01 16:54] LABS: ALBUMIN 2.7 g/dL (3.5-5.0); ALBUMIN/GLOBULIN RATIO 0.6 (0.8-2.0); ANION GAP 14.2 mmol/L (8-16); CALCIUM 10.1 mg/dL (8.4-10.2); CREATININE, SERUM 1.12 mg/dL (0.57-1.11); POTASSIUM 4.2 mmol/L (3.5-5.1)
[2020-03-01 17:01] LABS: CREATINE KINASE MB 0.5 ng/mL (0-5.0)
--- NOTE | 2020-03-01 17:37 | Diagnostic Imaging Report ---
EXAMINATION: CHEST SINGLE (PORTABLE) INDICATION: SOB COVID COMPARISON: None FINDINGS: AP view TUBES and LINES: There is a Port-A-Cath in the right anterior chest wall with distal tip in SVC. LUNGS/PLEURA: There are bilateral patchy opacities could represent multifocal pneumonia. There is no pleural effusion or pneumothorax. HEART AND MEDIASTINUM: The cardiomediastinal silhouette is unremarkable. BONES AND SOFT TISSUES: No acute osseous lesion. Soft tissues are unremarkable. UPPER ABDOMEN: No free air under the diaphragm. IMPRESSION: Bilateral patchy opacities could represent multifocal pneumonia. Signed by: Khang Granger MD on 03/01/2020 5:33 PM
--- NOTE | 2020-03-02 07:10 | NUR ---
BEDSIDE ROUNDS DONE WITH LATESHA BURROWS, ONCOMING NURSE HAS NO FURTHER QUESTIONS
--- NOTE | 2020-03-02 08:58 | NUR ---
BREAKFAST TRAY SET UP FOR PT
--- NOTE | 2020-03-02 13:02 | NUR ---
ADMIN APPROVAL FROM NAFISA MUÑOZ @ [address] BAMBI BOOTH @ [id number] GOING TO ROOM 554 AT [facility] REPORT TO FAX FACE SHEET TO
--- NOTE | 2020-03-02 13:30 | NUR ---
[facility] CALLED FOR TRANSPORT
--- NOTE | 2020-03-02 14:10 | NUR ---
CALLED REPORT TO RECEIVING FACILITY
== END | disposition other institution (70) ==
LOC: ER 15:13
DX: U07.1 COVID-19 (principal); R09.02 Hypoxemia; R50.9 Fever, unspecified; R05 Cough; J06.9 Acute upper respiratory infection, unspecified; I10 Essential (primary) hypertension; E11.9 Type 2 diabetes mellitus without complications; E78.5 Hyperlipidemia, unspecified; K21.9 Gastro-esophageal reflux disease without esophagitis; Z95.1 Presence of aortocoronary bypass graft; Z86.718 Personal history of other venous thrombosis and embolism
CPT/HCPCS: 36415; 71045; 80053; 82550; 82553; 83880; 84484; 85025; 87635; 93005; J7030; J0456

== ENCOUNTER → 2021-02-25 | Outpatient (CLI) | payer MEDICARE, BC ==
[2021-02-20 14:13] LABS: BASOPHILS % 0.5 % (0.0-1.0); EOSINOPHILS # (AUTO) 0.4 (0.0-0.4); EOSINOPHILS % 4.3 % (0.0-6.0); HEMATOCRIT 30.3 % (34.2-44.1); HEMOGLOBIN 9.3 g/dL (12.0-16.0); LYMPHOCYTES # (AUTO) 1.4 (1.0-3.2); LYMPHOCYTES % 17.4 % (18.0-39.1); MEAN CORPUSCULAR HEMOGLOBIN 28.5 pg (28-32); MEAN CORPUSCULAR HGB CONC 30.7 g/dL (31-35); MEAN CORPUSCULAR VOLUME 92.9 fL (81-99); MONOCYTES # (AUTO) 0.9 (0.2-0.8); MONOCYTES % 10.7 % (4.4-11.3); NEUTROPHILS # (AUTO) 5.4 (2.1-6.9); NEUTROPHILS % 66.6 % (38.7-80.0); PLATELET COUNT 265 x10e3/uL (140-360); RED BLOOD COUNT 3.26 x10e6/uL (3.6-5.1); RED CELL DISTRIBUTION WIDTH 13.9 % (11.7-14.4)
[~2021-02-25] MED LIST changes: -ACETAMINOPHEN 325 MG TAB PO PRN; -ASPIRIN 81 MG CHEW TAB PO ONE; -AZITHROMYCIN 500MG/NS 250 ML 250 ML IV SCH; +FAMOTIDINE20 MG PO; +FERROUS SULFAT325 MG PO; +FUROSEMIDE40 MG PO; +GABAPENTIN300 MG PO; +LOSARTAN POTAS100 MG PO; -NOREPINEPHRINE 8 MG/D5W 250 ML 250 ML ONE; -SODIUM CHLORIDE 0.9% 1000ML 1,000 ML IV SCH; +VIT B12 PO; +VIT E PO; +ZINC PO
== END ==
LOC: OR 07:24 → EDSTATUS 09:00
PROVIDERS: ATTEND Internal Medicine Gastroenterology
DX: Z01.818 Encounter for other preprocedural examination (principal); Z53.8 Procedure and treatment not carried out for other reasons; K92.1 Melena; R13.14 Dysphagia, pharyngoesophageal phase
CPT/HCPCS: 36415; 82948; 85025; 93005

== ENCOUNTER → 2021-04-15 | Outpatient (CLI) | payer BC, MEDICARE ==
[~2021-04-15] MED LIST changes: +IOPAMIDOL 370 MG/ML 200 ML INFUS..BTL INJ ONE; +SODIUM CHLORIDE 0.9% 100 ML ONE; +SODIUM CHLORIDE 0.9% 500ML 500 ML ONE
== END ==
LOC: CT 11:37
PROVIDERS: ATTEND Internal Medicine
DX: I65.23 Occlusion and stenosis of bilateral carotid arteries (principal); I70.8 Atherosclerosis of other arteries
CPT/HCPCS: 70498; 96360; J7040; J7050; Q9967

== ENCOUNTER → 2021-04-30 | Day surgery (SDC) | payer BC, MEDICARE ==
[2021-04-27 15:16] LABS: BASOPHILS # (AUTO) 0.1 (0.0-0.1); BASOPHILS % 0.5 % (0.0-1.0); EOSINOPHILS # (AUTO) 0.2 (0.0-0.4); EOSINOPHILS % 2.4 % (0.0-6.0); HEMOGLOBIN 10.1 g/dL (12.0-16.0); LYMPHOCYTES # (AUTO) 1.7 (1.0-3.2); LYMPHOCYTES % 18.6 % (18.0-39.1); MEAN CORPUSCULAR HEMOGLOBIN 27.4 pg (28-32); MEAN CORPUSCULAR HGB CONC 30.6 g/dL (31-35); MEAN CORPUSCULAR VOLUME 89.7 fL (81-99); MONOCYTES # (AUTO) 0.8 (0.2-0.8); MONOCYTES % 8.5 % (4.4-11.3); NEUTROPHILS # (AUTO) 6.4 (2.1-6.9); NEUTROPHILS % 69.8 % (38.7-80.0); PLATELET COUNT 208 x10e3/uL (140-360); RED BLOOD COUNT 3.68 x10e6/uL (3.6-5.1); RED CELL DISTRIBUTION WIDTH 13.4 % (11.7-14.4)
[2021-04-27 15:27] LABS: ALBUMIN 3.7 g/dL (3.5-5.0); ANION GAP 18.4 mmol/L (8-16); CALCIUM 9.2 mg/dL (8.4-10.2); CREATININE, SERUM 1.6 mg/dL (0.57-1.11); POTASSIUM 5.4 mmol/L (3.5-5.1)
[2021-04-27 16:12] LABS: INR 0.81; PROTHROMBIN TIME 11.4 seconds (11.9-14.5)
[~2021-04-30] VITALS: Ht 160 cm; Wt 81.6 kg
[2021-04-30] VITALS (22 sets, daily range): BP systolic 100–156; BP diastolic 52–80
[~2021-04-30] MED LIST changes: +ASPIRIN EC81 MG PO; +BASAGLAR K100 UNIT/1 SC; +DIPHENHYDRAMINE HCL INJ 50 MG/ML VIAL ONE; +FAMOTIDINE 20 MG/2 ML VIAL IV ONE; +FENTANYL CITRATE/PF 100MCG/2 ML INJ ONE; +HEPARIN SOD (PORCINE) 1000 UNIT/ML 30ML ONE; +HEPARIN SOD/SOD CHLORIDE 2,000 ML ONE; +IOPAMIDOL 300MG/ML 100 ML INFUS..BTL IV ONE; -IOPAMIDOL 370 MG/ML 200 ML INFUS..BTL INJ ONE; +JANUMET XR 50-1 EAC1 PO; +LEVOTHYROXINE75 MC1 PO; +LIDOCAINE HCL 2% LOCAL 20 ML VIAL ONE; +METHYLPREDNISOLONE SOD SUCC 125 MG/2ML VIAL ONE; +MIDAZOLAM HCL 2 MG/2 ML VIAL ONE; +NITROGLYCERIN/D5W 200 MCG/ML 250 ML ONE; +SCOPOLAMINE PO; -SODIUM CHLORIDE 0.9% 100 ML ONE; +SODIUM CHLORIDE 0.9% 1000ML 1,000 ML ONE; -SODIUM CHLORIDE 0.9% 500ML 500 ML ONE; +SUCRALFATE1 GM PO
== END | disposition home or self-care (01) ==
LOC: CATH LAB 06:21
PROVIDERS: ATTEND Internal Medicine Cardiovascular Disease
DX: I65.23 Occlusion and stenosis of bilateral carotid arteries (principal); I25.810 Atherosclerosis of coronary artery bypass graft(s) without angina pectoris; I49.1 Atrial premature depolarization; I10 Essential (primary) hypertension; E78.5 Hyperlipidemia, unspecified; I73.9 Peripheral vascular disease, unspecified; J45.909 Unspecified asthma, uncomplicated; D64.9 Anemia, unspecified; E13.69 Other specified diabetes mellitus with other specified complication; Z88.6 Allergy status to analgesic agent; Z01.812 Encounter for preprocedural laboratory examination; Z20.822 Contact with and (suspected) exposure to COVID-19; Z79.02 Long term (current) use of antithrombotics/antiplatelets; Z68.33 Body mass index [BMI] 33.0-33.9, adult; Z95.1 Presence of aortocoronary bypass graft; Z86.718 Personal history of other venous thrombosis and embolism; Z95.5 Presence of coronary angioplasty implant and graft; Z82.49 Family history of ischemic heart disease and other diseases of the circulatory system; Z82.3 Family history of stroke; Z83.3 Family history of diabetes mellitus
CPT/HCPCS: 36222; 36415; 76937; 80053; 85025; 85610; C1769; C1894; J1200; J2001; J2250; J2930; J3010; J7030; Q9967; U0002; 99152; 99153; J1644

== ENCOUNTER 2021-06-27 16:05 | Emergency (ER) | payer BC, MEDICARE ==
[~2021-06-27] VITALS: Ht 160 cm; Wt 83.0 kg
[~2021-06-27 16:05] MED LIST changes: -DIPHENHYDRAMINE HCL INJ 50 MG/ML VIAL ONE; -FAMOTIDINE 20 MG/2 ML VIAL IV ONE; -FENTANYL CITRATE/PF 100MCG/2 ML INJ ONE; -HEPARIN SOD (PORCINE) 1000 UNIT/ML 30ML ONE; -HEPARIN SOD/SOD CHLORIDE 2,000 ML ONE; -IOPAMIDOL 300MG/ML 100 ML INFUS..BTL IV ONE; -LIDOCAINE HCL 2% LOCAL 20 ML VIAL ONE; -METHYLPREDNISOLONE SOD SUCC 125 MG/2ML VIAL ONE; -MIDAZOLAM HCL 2 MG/2 ML VIAL ONE; -NITROGLYCERIN/D5W 200 MCG/ML 250 ML ONE; -SODIUM CHLORIDE 0.9% 1000ML 1,000 ML ONE
== END 2021-06-27 16:35 | disposition home or self-care (01) ==
LOC: FSED 16:14
DX: M79.674 Pain in right toe(s) (principal); S92.501D Displaced unspecified fracture of right lesser toe(s), subsequent encounter for fracture with routine healing; W22.09XA Striking against other stationary object, initial encounter; Y92.008 Other place in unspecified non-institutional (private) residence as the place of occurrence of the external cause; I10 Essential (primary) hypertension; E03.9 Hypothyroidism, unspecified; E78.5 Hyperlipidemia, unspecified; Z95.1 Presence of aortocoronary bypass graft
CPT/HCPCS: 99283

== ENCOUNTER 2022-07-14 16:05 | Emergency (ER) | payer BC, MEDICARE ==
[~2022-07-14] VITALS: Ht 160 cm; Wt 76.2 kg
[2022-07-14] MEDS ORDERED: PREDNISONE20 MG PO (17:44)
[2022-07-14] MEDS ORDERED: PREDNISONE 20 MG TAB PO ONE (17:45)
[2022-07-14] MEDS ORDERED: PREDNISONE 20 MG TAB ONE (17:59)
== END 2022-07-14 18:04 | disposition home or self-care (01) ==
LOC: FSED 16:14
DX: R50.9 Fever, unspecified (principal); M54.41 Lumbago with sciatica, right side; M54.16 Radiculopathy, lumbar region; I10 Essential (primary) hypertension; E78.5 Hyperlipidemia, unspecified; I25.10 Atherosclerotic heart disease of native coronary artery without angina pectoris; I73.9 Peripheral vascular disease, unspecified; Z95.1 Presence of aortocoronary bypass graft
CPT/HCPCS: 99283; J7512

== ENCOUNTER → 2022-10-25 | Day surgery (SDC) | payer BC, MEDICARE ==
[2022-10-21 10:10] LABS: BASOPHILS # (AUTO) 0.1 (0.0-0.1); BASOPHILS % 0.6 % (0.0-1.0); EOSINOPHILS # (AUTO) 0.3 (0.0-0.4); EOSINOPHILS % 3.5 % (0.0-6.0); HEMATOCRIT 40.2 % (34.2-44.1); HEMOGLOBIN 12.3 g/dL (12.0-16.0); LYMPHOCYTES # (AUTO) 1.8 (1.0-3.2); LYMPHOCYTES % 22.6 % (18.0-39.1); MEAN CORPUSCULAR HEMOGLOBIN 27.3 pg (28-32); MEAN CORPUSCULAR HGB CONC 30.6 g/dL (31-35); MEAN CORPUSCULAR VOLUME 89.1 fL (81-99); MONOCYTES # (AUTO) 0.6 (0.2-0.8); PLATELET COUNT 211 x10e3/uL (140-360); RED BLOOD COUNT 4.51 x10e6/uL (3.6-5.1); RED CELL DISTRIBUTION WIDTH 15.6 % (11.7-14.4)
[~2022-10-25] MED LIST changes: +LEVEMIR FL100 UNIT/1 SC; +LIDOCAINE HCL 2% LOCAL INJ 5 ML SDV VIAL INJ ONE; +METFORMIN HCL500 M2 PO; +OZEMPIC0.25 MG/0. SC; +POVIDONE IODINE 0.05% 0.05 % ML PO ONE; +PREDNISONE20 MG PO; +PROPOFOL IV EMULSION 10 MG/ML 20 ML VIAL ONE
[2022-10-25 10:35] VITALS: BP 153/74
== END | disposition home or self-care (01) ==
LOC: OR 07:31
PROVIDERS: ATTEND Internal Medicine Gastroenterology
DX: K29.00 Acute gastritis without bleeding (principal); K31.7 Polyp of stomach and duodenum; K29.30 Chronic superficial gastritis without bleeding; R13.14 Dysphagia, pharyngoesophageal phase; K44.9 Diaphragmatic hernia without obstruction or gangrene; K31.84 Gastroparesis; K31.89 Other diseases of stomach and duodenum; T18.2XXA Foreign body in stomach, initial encounter; D64.9 Anemia, unspecified; E11.9 Type 2 diabetes mellitus without complications; M19.90 Unspecified osteoarthritis, unspecified site; J45.909 Unspecified asthma, uncomplicated; I10 Essential (primary) hypertension; X58.XXXA Exposure to other specified factors, initial encounter; Z88.6 Allergy status to analgesic agent; Z88.8 Allergy status to other drugs, medicaments and biological substances; Z91.041 Radiographic dye allergy status; Z01.810 Encounter for preprocedural cardiovascular examination; Z01.812 Encounter for preprocedural laboratory examination; Z79.02 Long term (current) use of antithrombotics/antiplatelets; Z79.82 Long term (current) use of aspirin; Z79.4 Long term (current) use of insulin; Z79.85 Long-term (current) use of injectable non-insulin antidiabetic drugs; Z79.84 Long term (current) use of oral hypoglycemic drugs; Z95.1 Presence of aortocoronary bypass graft
CPT/HCPCS: 36415 ×2; 43239; 82948; 85025; 93005; J2001; J2704

== ENCOUNTER → 2022-12-06 | Outpatient (CLI) | payer BC, MEDICARE ==
[~2022-12-06] MED LIST changes: -LIDOCAINE HCL 2% LOCAL INJ 5 ML SDV VIAL INJ ONE; -POVIDONE IODINE 0.05% 0.05 % ML PO ONE; -PROPOFOL IV EMULSION 10 MG/ML 20 ML VIAL ONE
== END ==
LOC: DX 10:19
PROVIDERS: ATTEND Internal Medicine Gastroenterology
DX: R13.14 Dysphagia, pharyngoesophageal phase (principal); K21.9 Gastro-esophageal reflux disease without esophagitis; K22.4 Dyskinesia of esophagus; K31.84 Gastroparesis
CPT/HCPCS: 74230

== ENCOUNTER → 2024-11-14 | Day surgery (SDC) | payer MEDICARE ==
[2024-11-12 13:54] LABS: BASOPHILS # (AUTO) 0.1 (0.0-0.1); BASOPHILS % 0.8 % (0.0-1.0); EOSINOPHILS # (AUTO) 0.2 (0.0-0.4); EOSINOPHILS % 2.7 % (0.0-6.0); HEMATOCRIT 36.1 % (34.2-44.1); HEMOGLOBIN 11.2 g/dL (12.0-16.0); LYMPHOCYTES # (AUTO) 2.1 (1.0-3.2); LYMPHOCYTES % 24.1 % (18.0-39.1); MEAN CORPUSCULAR HEMOGLOBIN 27.9 pg (28-32); MEAN CORPUSCULAR VOLUME 89.8 fL (81-99); MONOCYTES # (AUTO) 0.7 (0.2-0.8); MONOCYTES % 7.8 % (4.4-11.3); NEUTROPHILS # (AUTO) 5.6 (2.1-6.9); NEUTROPHILS % 64.4 % (38.7-80.0); PLATELET COUNT 223 x10e3/uL (140-360); RED BLOOD COUNT 4.02 x10e6/uL (3.6-5.1); RED CELL DISTRIBUTION WIDTH 15.1 % (11.7-14.4); WHITE BLOOD COUNT 8.75 x10e3/uL (4.8-10.8)
[~2024-11-14] MED LIST changes: +CARAFATE1 GM PO; +JARDIANCE10 MG PO; +LIDOCAINE HCL 2% LOCAL INJ 5 ML SDV VIAL INJ ONE; +PROPOFOL IV EMULSION 50 ML IV ONE; +TRESIBA FL100 UNIT/1 SC; +XALATAN2.5 ML OD; +XALATAN2.5 ML OU
[2024-11-14] MEDS: LACTATED RINGER'S 1,000 ML ONE (08:43)
[2024-11-14 11:01] VITALS: TEMP 98.3
[2024-11-14 11:36] VITALS: BP 166/69; PULSE 55; RESP 18; O2SAT 99
== END | disposition home or self-care (01) ==
LOC: OR 08:10
PROVIDERS: ATTEND Internal Medicine Gastroenterology
DX: K52.9 Noninfective gastroenteritis and colitis, unspecified (principal); K57.30 Diverticulosis of large intestine without perforation or abscess without bleeding; I10 Essential (primary) hypertension; I25.10 Atherosclerotic heart disease of native coronary artery without angina pectoris; I48.91 Unspecified atrial fibrillation; E78.5 Hyperlipidemia, unspecified; J45.909 Unspecified asthma, uncomplicated; E11.9 Type 2 diabetes mellitus without complications; E03.9 Hypothyroidism, unspecified; Z88.6 Allergy status to analgesic agent; Z91.041 Radiographic dye allergy status; Z91.048 Other nonmedicinal substance allergy status; Z91.040 Latex allergy status; Z01.810 Encounter for preprocedural cardiovascular examination; Z01.812 Encounter for preprocedural laboratory examination; Z79.84 Long term (current) use of oral hypoglycemic drugs; Z79.85 Long-term (current) use of injectable non-insulin antidiabetic drugs; Z79.4 Long term (current) use of insulin; Z79.899 Other long term (current) drug therapy; Z95.5 Presence of coronary angioplasty implant and graft
CPT/HCPCS: 36415 ×2; 45380; 82948; 85025; 88305; 93005; J2003; J2704; J7121; 45378